=== PATIENT | female | born 1940 | race Caucasian/White ===

== ENCOUNTER 2016-10-24 13:14 | Outpatient (CLI) | payer MEDICARE | END 2016-10-24 13:15 | disposition home or self-care (01) | DX: M19.041 Primary osteoarthritis, right hand (principal); M19.042 Primary osteoarthritis, left hand ==

== ENCOUNTER 2017-07-13 08:20 | Outpatient (CLI) | payer MEDICARE ==
[2017-07-14 13:22] LABS: TEST RESULT REPORT
== END 2017-07-13 08:21 | disposition home or self-care (01) ==
LOC: LAB.WCP 08:20
PROVIDERS: ATTEND Family Medicine
DX: R19.7 Diarrhea, unspecified (principal); K29.60 Other gastritis without bleeding
CPT/HCPCS: 81599; 83630; 87045; 87046; 87329; 87338; 87493

== ENCOUNTER 2018-04-08 07:13 | Outpatient (CLI) | payer MEDICARE ==
[2018-04-08 12:54] LABS: BASOPHILS # (AUTO) 0.1 10^3/uL (0.0-0.1); BASOPHILS % (AUTO) 1.3 %; EOSINOPHILS # (AUTO) 0.2 10^3/uL (0.0-0.7); EOSINOPHILS % (AUTO) 4.2 %; HGB - HEMOGLOBIN 15.3 g/dL (12.0-16.0); LYMPHOCYTES # (AUTO) 1.5 10^3/uL (1.5-3.5); LYMPHOCYTES % (AUTO) 29.3 %; MEAN CORPUSCULAR HGB CONC 33.1 g/dL (32.0-36.0); MEAN CORPUSCULAR VOLUME 96.6 fL (81.0-99.0); MEAN PLATELET VOLUME 8.8 fL (7.9-10.8); MONOCYTES # (AUTO) 0.5 10^3/uL (0.0-1.0); MONOCYTES % (AUTO) 9.7 %; NEUTROPHILS # (AUTO) 2.9 10^3/uL (1.5-6.6); NEUTROPHILS % (AUTO) 55.5 %; PLT - PLATELET COUNT 181 10^3/uL (130-450); RED BLOOD COUNT 4.78 10^6/uL (4.20-5.40); RED CELL DISTRIBUTION WIDTH 13.4 % (12.0-15.0); WHITE BLOOD COUNT 5.3 x10^3/uL (4.8-10.8)
[2018-04-08 13:21] LABS: ALBUMIN/GLOBULIN RATIO 1.5 (1.0-2.2); ALKALINE PHOSPHATASE 70 IU/L (42-121); ALT ALANINE AMINOTRANSFERASE 15 IU/L (10-60); AST ASPARTATE AMINOTRANSFERASE 18 IU/L (10-42); BILIRUBIN,TOTAL 0.8 mg/dL (0.2-1.0); BUN - BLOOD UREA NITROGEN 10 mg/dL (6-20); CALCIUM 9.2 mg/dL (8.5-10.3); CARBON DIOXIDE - CO2 27 mmol/L (21-32); CHLORIDE 106 mmol/L (101-111); CHOL/HDL RATIO 3.2 (<4.4); CHOLESTEROL 212 mg/dL; CREATININE 0.9 mg/dL (0.4-1.0); GFR - MDRD 61 (>89); GLUCOSE 81 mg/dL (70-100); HDL CHOLESTEROL 66 mg/dL; LDL CHOLESTEROL,CALCULATED 126 mg/dL; LDL/HDL RATIO 1.9 (<4.4); SODIUM 140 mmol/L (135-145); TOTAL PROTEIN 6.6 g/dL (6.7-8.2); VLDL CHOLESTEROL 20 mg/dL
== END 2018-04-08 07:14 | disposition home or self-care (01) ==
LOC: LAB.WCP 07:13
PROVIDERS: ATTEND Physician Assistant Medical
DX: E78.5 Hyperlipidemia, unspecified (principal); I10 Essential (primary) hypertension
CPT/HCPCS: 36415; 80053; 80061; 83721; 85025

== ENCOUNTER 2018-04-30 18:05 | Outpatient (CLI) | payer MEDICARE | END 2018-04-30 18:06 | disposition short-term general hospital (02) | LOC: EMS 18:05 | PROVIDERS: ATTEND Surgery | DX: R94.39 Abnormal result of other cardiovascular function study (principal) | CPT/HCPCS: A0425; A0429 ==

== ENCOUNTER 2018-07-28 02:36 | Outpatient (CLI) | payer MEDICARE | END 2018-07-28 02:37 | disposition critical access hospital (66) | LOC: EMS 02:36 | PROVIDERS: ATTEND Surgery | DX: M25.512 Pain in left shoulder (principal) | CPT/HCPCS: A0425; A0429 ==

== ENCOUNTER 2018-07-28 02:45 | Emergency (ER) | payer MEDICARE ==
[2018-07-28] MEDS ORDERED: KETOROLAC 60 MG/2 ML VIAL IVP STA (02:54)
--- NOTE | 2018-07-28 02:58 | ED Physician Documentation ---
History of Present Illness - Stated complaint Stated Complaint: SHOULDER PAIN - Chief complaint Chief Complaint: Ext Problem - History obtained from History obtained from: Patient, EMS - History of Present Illness Timing: How many hours ago (7) Pain level max: 7 Pain level now: 5 Improved by: Rest Worsened by: Movement - Additonal information Additional information: Patient is a 78-year-old female who presents to the emergency department with left shoulder pain that started around 8:00 last night. Has been persistent since that time. She took 1 200 mg Motrin without relief. She did go work out today at [employer]. Denies any known injury. She states that she had 2 coronary stents in May of this year and is concerned about this potentially being related to her heart Review of Systems Constitutional: denies: Fever, Chills Cardiac: denies: Chest pain / pressure, Palpitations Respiratory: denies: Dyspnea, Cough, Wheezing GI: denies: Vomiting, Diarrhea Skin: denies: Rash Musculoskeletal: denies: Neck pain, Back pain Neurologic: denies: Headache PD PAST MEDICAL HISTORY - Past Medical History Past Medical History: Yes Cardiovascular: Hypertension, High cholesterol, Coronary artery disease GI: GERD - Past Surgical History Past Surgical History: Yes General: Appendectomy Ortho: Knee replacement, Carpal Tunnel surgery Cardiovascular: Coronary stent, Angioplasty HEENT: Cataracts - Present Medications Home Medications: Ambulatory Orders Medication Instructions Recorded Confirmed Losartan [Cozaar] 50 mg PO DAILY 01/14/15 07/28/18 - Allergies Allergies/Adverse Reactions: Allergies Allergy/AdvReac Type Severity Reaction Status Date / Time No Known Drug Allergies Allergy Verified 07/28/18 02:54 - Social History Does the pt smoke?: No Smoking Status: Never smoker Does the pt drink ETOH?: No Does the pt have substance abuse?: No - Immunizations Immunizations are current?: Yes - POLST Patient has POLST: No PD ED PE NORMAL - Vitals Vital signs reviewed: Yes - General General: Alert and oriented X 3, No acute distress - HEENT HEENT: Moist mucous membranes - Neck Neck: Supple, no meningeal sign - Cardiac Cardiac: RRR, Strong equal pulses - Respiratory Respiratory: No respiratory distress, Clear bilaterally - Abdomen Abdomen: Soft, Non tender, Non distended - Derm Derm: Warm and dry - Extremities Extremities: Other (L shoulder - TTP over the glenohumeral joint, anterior joint line. Pain increases with AROM. NVI including axillary nerve) - Neuro Neuro: Alert and oriented X 3 - Psych Psych: Normal mood, Normal affect Results - Vitals Vitals: Vital Signs - 24 hr 07/28/18 07/28/18 07/28/18 02:50 03:30 04:11 Temperature 36.7 C Heart Rate 60 65 98 Respiratory 18 16 16 Rate Blood Pressure 157/64 H 135/68 H 152/65 H O2 Saturation 96 94 97 Oxygen O2 Source Room air - EKG (time done) 0254 Rate: Rate (enter#) (64) Rhythm: NSR [place]: Normal Intervals: Normal VA QRS: Normal Ischemia: Normal ST segments - Labs Labs: Laboratory Tests 07/28/18 07/28/18 07/28/18 03:00 03:00 03:00 WBC 6.2 RBC 4.49 Hgb 14.6 Hct 41.0 MCV 91.3 MCH 32.5 H MCHC 35.6 RDW 13.5 Plt Count 161 MPV 7.5 L Neut # (Auto) 4.4 Lymph # (Auto) 0.9 L [place] # (Auto) 0.6 Eos # (Auto) 0.2 Baso # (Auto) 0.1 Absolute Nucleated RBC 0.00 Nucleated RBC % 0.0 Sodium 137 Potassium 3.7 Chloride 104 Carbon Dioxide 24 Anion Gap 9.0 BUN 13 Creatinine 0.7 Estimated GFR (MDRD) 81 L Glucose 97 Calcium 9.1 Total Bilirubin 0.9 AST 33 ALT 46 Alkaline Phosphatase 90 Troponin I < 0.04 Total Protein 6.4 L Albumin 4.2 Globulin 2.2 Albumin/Globulin Ratio 1.9 Lipase 37 - Rads (name of study) cxr Radiology: Prelim report reviewed, EMP read contemporaneously, See rad report (no acute abnormality) PD MEDICAL DECISION MAKING - ED course Complexity details: reviewed results, re-evaluated patient, considered differential, d/w patient ED course: Patient is a 78-year-old female who presents to the emergency department with left shoulder pain. Appears musculoskeletal. No acute findings on EKG or cardiac enzymes after greater than 6 hours of symptoms. Pain resolved with Toradol. We will continue supportive care and follow-up with her doctor. Patient counseled regarding signs and symptoms for which I believe and urgent re-evaluation would be necessary. Patient with good understanding of and agreement to plan and is comfortable going home at this time This document was made in part using voice recognition software. While efforts are made to proofread this document, sound alike and grammatical errors may occur. Departure - Departure Disposition: 01 Home, Self Care Clinical Impression: Left shoulder strain Qualifiers: Encounter type: initial encounter Qualified Code(s): S46.912A - Strain of unspecified muscle, fascia and tendon at shoulder and upper arm level, left arm, initial encounter Condition: Good Instructions: ED Tendinitis Rotator Cuff Follow-Up: Brian Benitez MD [Primary Care Provider] - Within 1 week Comments: You appear to have inflammation in your shoulder. This should improve over the next few days. Return if you worsen. You can use motrin or tylenol as needed for pain. Discharge Date/Time: 07/28/18 04:24
[2018-07-28 03:14] LABS: BASOPHILS # (AUTO) 0.1 10^3/uL (0.0-0.1); BASOPHILS % (AUTO) 1.2 %; EOSINOPHILS # (AUTO) 0.2 10^3/uL (0.0-0.7); EOSINOPHILS % (AUTO) 3.9 %; HGB - HEMOGLOBIN 14.6 g/dL (12.0-16.0); LYMPHOCYTES # (AUTO) 0.9 10^3/uL (1.5-3.5); LYMPHOCYTES % (AUTO) 15.2 %; MEAN CORPUSCULAR HEMOGLOBIN 32.5 pg (27.0-31.0); MEAN CORPUSCULAR HGB CONC 35.6 g/dL (32.0-36.0); MEAN CORPUSCULAR VOLUME 91.3 fL (81.0-99.0); MEAN PLATELET VOLUME 7.5 fL (7.9-10.8); MONOCYTES # (AUTO) 0.6 10^3/uL (0.0-1.0); MONOCYTES % (AUTO) 9.5 %; NEUTROPHILS # (AUTO) 4.4 10^3/uL (1.5-6.6); NEUTROPHILS % (AUTO) 70.2 %; PLT - PLATELET COUNT 161 10^3/uL (130-450); RED BLOOD COUNT 4.49 10^6/uL (4.20-5.40); RED CELL DISTRIBUTION WIDTH 13.5 % (12.0-15.0); WHITE BLOOD COUNT 6.2 x10^3/uL (4.8-10.8)
[2018-07-28 03:27] LABS: ALBUMIN 4.2 g/dL (3.2-5.5); ALBUMIN/GLOBULIN RATIO 1.9 (1.0-2.2); BILIRUBIN,TOTAL 0.9 mg/dL (0.2-1.0); CALCIUM 9.1 mg/dL (8.5-10.3); CREATININE 0.7 mg/dL (0.4-1.0); TOTAL PROTEIN 6.4 g/dL (6.7-8.2)
--- NOTE | 2018-07-28 03:38 | XRAY Report ---
Reason: Chest Pain Procedure Date: 07/28/2018 Accession Number: [id number] / [id number] Procedure: XR - Chest 1 View X-Ray CPT Code: 85303 FULL RESULT: EXAM: CHEST RADIOGRAPHY EXAM DATE: 07/28/2018 03:05 AM. CLINICAL HISTORY: Chest Pain. COMPARISON: XR CHEST PA AND LAT 06/30/2009 12:50 PM. TECHNIQUE: 1 view. FINDINGS: Lungs/Pleura: No focal opacities evident. No pleural effusion. No pneumothorax. Mediastinum: Within exam limitations, the cardiomediastinal contour is normal. Other: None. IMPRESSION: Normal single view chest. RADIA
[2018-07-28 04:13] VITALS: BP 152/65
== END 2018-07-28 04:24 | disposition home or self-care (01) ==
LOC: EDUNIT# → EDBD → ED 02:45
DX: S46.912A Strain of unspecified muscle, fascia and tendon at shoulder and upper arm level, left arm, initial encounter (principal); X58.XXXA Exposure to other specified factors, initial encounter; I10 Essential (primary) hypertension; E78.00 Pure hypercholesterolemia, unspecified; I25.10 Atherosclerotic heart disease of native coronary artery without angina pectoris; Z95.5 Presence of coronary angioplasty implant and graft; Z96.659 Presence of unspecified artificial knee joint
CPT/HCPCS: 36415; 71045; 80053; 83690; 84484; 85025; 93005; 96374; 99283

== ENCOUNTER 2018-08-07 07:46 | Outpatient (CLI) | payer MEDICARE ==
[2018-08-07 12:56] LABS: BASOPHILS # (AUTO) 0.1 10^3/uL (0.0-0.1); BASOPHILS % (AUTO) 1.3 %; EOSINOPHILS # (AUTO) 0.2 10^3/uL (0.0-0.7); EOSINOPHILS % (AUTO) 5.5 %; HGB - HEMOGLOBIN 15.3 g/dL (12.0-16.0); LYMPHOCYTES % (AUTO) 21.8 %; MEAN CORPUSCULAR HEMOGLOBIN 32.4 pg (27.0-31.0); MEAN CORPUSCULAR HGB CONC 35.2 g/dL (32.0-36.0); MEAN CORPUSCULAR VOLUME 92.1 fL (81.0-99.0); MEAN PLATELET VOLUME 8.6 fL (7.9-10.8); MONOCYTES # (AUTO) 0.5 10^3/uL (0.0-1.0); MONOCYTES % (AUTO) 10.7 %; NEUTROPHILS # (AUTO) 2.7 10^3/uL (1.5-6.6); NEUTROPHILS % (AUTO) 60.7 %; PLT - PLATELET COUNT 171 10^3/uL (130-450); RED BLOOD COUNT 4.71 10^6/uL (4.20-5.40); RED CELL DISTRIBUTION WIDTH 13.2 % (12.0-15.0); WHITE BLOOD COUNT 4.5 x10^3/uL (4.8-10.8)
[2018-08-07 13:30] LABS: ALBUMIN 4.4 g/dL (3.2-5.5); ALBUMIN/GLOBULIN RATIO 1.9 (1.0-2.2); ALKALINE PHOSPHATASE 87 IU/L (42-121); ALT ALANINE AMINOTRANSFERASE 27 IU/L (10-60); AST ASPARTATE AMINOTRANSFERASE 23 IU/L (10-42); BUN - BLOOD UREA NITROGEN 17 mg/dL (6-20); CALCIUM 9.5 mg/dL (8.5-10.3); CARBON DIOXIDE - CO2 28 mmol/L (21-32); CHLORIDE 105 mmol/L (101-111); CHOL/HDL RATIO 2.6 (<4.4); CHOLESTEROL 142 mg/dL; CREATININE 0.9 mg/dL (0.4-1.0); GFR - MDRD 60 (>89); GLUCOSE 91 mg/dL (70-100); HDL CHOLESTEROL 55 mg/dL; LDL CHOLESTEROL,CALCULATED 72 mg/dL; LDL/HDL RATIO 1.3 (<4.4); SODIUM 140 mmol/L (135-145); TOTAL PROTEIN 6.7 g/dL (6.7-8.2); VLDL CHOLESTEROL 15 mg/dL
== END 2018-08-07 07:47 | disposition home or self-care (01) ==
LOC: LAB.WCP 07:46
PROVIDERS: ATTEND Family Medicine
DX: I25.10 Atherosclerotic heart disease of native coronary artery without angina pectoris (principal)
CPT/HCPCS: 36415; 80053; 80061; 83721; 85025

== ENCOUNTER 2018-11-22 08:00 | Outpatient (CLI) | payer MEDICARE | END 2018-11-22 08:01 | disposition home or self-care (01) | LOC: LAB.WCP 08:00 | PROVIDERS: ATTEND Family Medicine | DX: R19.7 Diarrhea, unspecified (principal) | CPT/HCPCS: 36415; 83630; 87045; 87046; 87493 ==

== ENCOUNTER 2018-11-23 08:10 | Outpatient (CLI) | payer MEDICARE | END 2018-11-23 23:59 | disposition home or self-care (01) | LOC: LAB.R 08:10 | PROVIDERS: ATTEND Family Medicine | DX: R19.7 Diarrhea, unspecified (principal) | CPT/HCPCS: 81599; 83630; 87045; 87046; 87329; 87493 ==

== ENCOUNTER 2019-06-26 14:05 | Outpatient (CLI) | payer MEDICARE ==
--- NOTE | 2019-06-27 09:40 | Mammography Report ---
Reason: ROUTINE MAMMO Procedure Date: 06/26/2019 Accession Number: [id number] / [id number] Procedure: CIPRIANO - Screening Mammo w/Bogdan CPT Code: FULL RESULT: EXAM: Screening Mammo w/Bogdan DATE: 06/26/2019 4:20 PM CLINICAL HISTORY: Screening encounter. History of benign left breast biopsy. TECHNIQUE: (B) - Bilateral CC and MLO views were obtained. COMPARISON: 09/17/2013 through 08/10/2010. PARENCHYMAL PATTERN: (A) - The breast(s) demonstrate(s) scattered fibroglandular densities. FINDINGS: There are typically benign large rodlike and typically benign vascular calcifications. There are no suspicious masses, calcifications, or areas of distortion. IMPRESSION: Benign findings. BI-RADS category 2. RECOMMENDATION: (ANNUAL) - Recommend routine annual screening mammography. BI-RADS CATEGORY: (2) - Benign Findings. STANDARD QUALIFYING STATEMENTS: 1. This examination was not reviewed with the aid of Computer-Aided Detection (CAD). 2. A negative or benign imaging report should not preclude biopsy if clinically suspicious findings are present. 3. Dense breasts may obscure an underlying neoplasm. 4. This examination was reviewed with the aid of 3D breast imaging (tomosynthesis).
== END 2019-06-26 14:06 | disposition home or self-care (01) ==
LOC: DI 14:05
DX: Z12.31 Encounter for screening mammogram for malignant neoplasm of breast (principal)
CPT/HCPCS: 77063; 77067

== ENCOUNTER 2019-10-27 08:04 | Outpatient (CLI) | payer MEDICARE ==
[2019-10-27 12:08] LABS: BASOPHILS # (AUTO) 0.1 10^3/uL (0.0-0.1); BASOPHILS % (AUTO) 1.1 %; EOSINOPHILS # (AUTO) 0.2 10^3/uL (0.0-0.7); EOSINOPHILS % (AUTO) 3.7 %; HGB - HEMOGLOBIN 15.6 g/dL (12.0-16.0); LYMPHOCYTES # (AUTO) 1.6 10^3/uL (1.5-3.5); LYMPHOCYTES % (AUTO) 27.5 %; MEAN CORPUSCULAR HEMOGLOBIN 33.3 pg (27.0-31.0); MEAN CORPUSCULAR HGB CONC 33.8 g/dL (32.0-36.0); MEAN CORPUSCULAR VOLUME 98.5 fL (81.0-99.0); MEAN PLATELET VOLUME 10.6 fL (7.9-10.8); MONOCYTES # (AUTO) 0.6 10^3/uL (0.0-1.0); MONOCYTES % (AUTO) 10.7 %; NEUTROPHILS # (AUTO) 3.2 10^3/uL (1.5-6.6); NEUTROPHILS % (AUTO) 56.6 %; PLT - PLATELET COUNT 189 10^3/uL (130-450); RED BLOOD COUNT 4.69 10^6/uL (4.20-5.40); RED CELL DISTRIBUTION WIDTH 12.2 % (12.0-15.0); WHITE BLOOD COUNT 5.7 x10^3/uL (4.8-10.8)
[2019-10-27 12:35] LABS: ALBUMIN 4.6 g/dL (3.2-5.5); ALBUMIN/GLOBULIN RATIO 2.1 (1.0-2.2); ALKALINE PHOSPHATASE 70 IU/L (42-121); ALT ALANINE AMINOTRANSFERASE 25 IU/L (10-60); AST ASPARTATE AMINOTRANSFERASE 21 IU/L (10-42); BILIRUBIN,TOTAL 0.9 mg/dL (0.2-1.0); BUN - BLOOD UREA NITROGEN 23 mg/dL (6-20); CALCIUM 9.6 mg/dL (8.5-10.3); CARBON DIOXIDE - CO2 27 mmol/L (21-32); CHLORIDE 103 mmol/L (101-111); CHOL/HDL RATIO 2.3 (<4.4); CHOLESTEROL 152 mg/dL; CREATININE 0.9 mg/dL (0.4-1.0); GFR - MDRD 60 (>89); GLUCOSE 94 mg/dL (70-100); HDL CHOLESTEROL 67 mg/dL; LDL CHOLESTEROL,CALCULATED 73 mg/dL; LDL/HDL RATIO 1.1 (<4.4); SODIUM 141 mmol/L (135-145); TOTAL PROTEIN 6.8 g/dL (6.7-8.2); VLDL CHOLESTEROL 12 mg/dL
== END 2019-10-27 23:59 | disposition home or self-care (01) ==
LOC: LAB.WCP 08:04
PROVIDERS: ATTEND Physician Assistant Medical
DX: Z00.00 Encounter for general adult medical examination without abnormal findings (principal); I25.10 Atherosclerotic heart disease of native coronary artery without angina pectoris; D64.9 Anemia, unspecified; H53.9 Unspecified visual disturbance; L20.9 Atopic dermatitis, unspecified; M17.0 Bilateral primary osteoarthritis of knee; I10 Essential (primary) hypertension; E78.5 Hyperlipidemia, unspecified; Z78.9 Other specified health status
CPT/HCPCS: 36415; 80053; 80061; 82306; 82728; 83721; 85025

== ENCOUNTER 2020-04-21 08:32 | Outpatient (CLI) | payer MEDICARE ==
[2020-04-21 12:06] LABS: ALBUMIN 4.2 g/dL (3.2-5.5); ALBUMIN/GLOBULIN RATIO 1.9 (1.0-2.2); BILIRUBIN,TOTAL 1.2 mg/dL (0.2-1.0); CALCIUM 9.6 mg/dL (8.5-10.3); CREATININE 0.9 mg/dL (0.4-1.0); TOTAL PROTEIN 6.4 g/dL (6.7-8.2)
== END 2020-04-21 23:59 | disposition home or self-care (01) ==
LOC: LAB.WCP 08:32
PROVIDERS: ATTEND Family Medicine
DX: I25.10 Atherosclerotic heart disease of native coronary artery without angina pectoris (principal); I10 Essential (primary) hypertension; E78.5 Hyperlipidemia, unspecified
CPT/HCPCS: 36415; 80053

== ENCOUNTER 2020-11-02 11:45 | Outpatient (CLI) | payer MEDICARE ==
[2020-11-02 19:03] LABS: ALBUMIN 4.4 g/dL (3.2-5.5); ALBUMIN/GLOBULIN RATIO 2.3 (1.0-2.2); ALKALINE PHOSPHATASE 77 IU/L (42-121); ALT ALANINE AMINOTRANSFERASE 26 IU/L (10-60); AST ASPARTATE AMINOTRANSFERASE 20 IU/L (10-42); BILIRUBIN,TOTAL 0.7 mg/dL (0.2-1.0); BUN - BLOOD UREA NITROGEN 18 mg/dL (6-20); CALCIUM 9.9 mg/dL (8.5-10.3); CARBON DIOXIDE - CO2 26 mmol/L (21-32); CHLORIDE 104 mmol/L (101-111); CHOLESTEROL 142 mg/dL; CREATININE 0.8 mg/dL (0.4-1.0); GLUCOSE 91 mg/dL (70-100); HDL CHOLESTEROL 70 mg/dL; LDL CHOLESTEROL,CALCULATED 44 mg/dL; LDL/HDL RATIO 0.6 (<4.4); TOTAL PROTEIN 6.3 g/dL (6.7-8.2); VLDL CHOLESTEROL 28 mg/dL
[2020-11-02 19:12] LABS: BASOPHILS # (AUTO) 0.1 10^3/uL (0.0-0.1); BASOPHILS % (AUTO) 0.7 %; EOSINOPHILS # (AUTO) 0.1 10^3/uL (0.0-0.7); EOSINOPHILS % (AUTO) 1.9 %; HGB - HEMOGLOBIN 14.5 g/dL (12.0-16.0); LYMPHOCYTES # (AUTO) 1.5 10^3/uL (1.5-3.5); LYMPHOCYTES % (AUTO) 20.5 %; MEAN CORPUSCULAR HEMOGLOBIN 32.8 pg (27.0-31.0); MEAN CORPUSCULAR HGB CONC 32.9 g/dL (32.0-36.0); MEAN CORPUSCULAR VOLUME 99.8 fL (81.0-99.0); MONOCYTES # (AUTO) 0.7 10^3/uL (0.0-1.0); MONOCYTES % (AUTO) 8.9 %; NEUTROPHILS % (AUTO) 67.7 %; PLT - PLATELET COUNT 184 10^3/uL (130-450); RED BLOOD COUNT 4.42 10^6/uL (4.20-5.40); RED CELL DISTRIBUTION WIDTH 12.4 % (12.0-15.0); WHITE BLOOD COUNT 7.3 x10^3/uL (4.8-10.8)
== END 2020-11-02 23:59 | disposition home or self-care (01) ==
LOC: LAB.WCP 11:45
PROVIDERS: ATTEND Family Medicine
DX: I25.10 Atherosclerotic heart disease of native coronary artery without angina pectoris (principal); I10 Essential (primary) hypertension; E78.5 Hyperlipidemia, unspecified
CPT/HCPCS: 36415; 80053; 80061; 83721; 84443; 85025

== ENCOUNTER 2020-12-03 08:23 | Outpatient (CLI) | payer MEDICARE ==
--- NOTE | 2020-12-03 09:27 | DEXA Report ---
PROCEDURE: Dexa Spine and/or Hip INDICATIONS: POST MENOPAUSAL TECHNIQUE: Dual energy x-ray absorptiometry (DXA) was performed on a [employer] System. Regions measur ed are the AP Spine, femoral neck, and if needed forearm. COMPARISON: None. FINDINGS: Lumbar Spine: Bone Mineral Density 1.200 g/cm/cm,T score 0.2, Left Femoral Neck: Bone Mineral Density 0.964 g/cm/cm, T score -0.3, (T score greater or equal to -1.0: NORMAL) (T score from -1.1 to -2.4: OSTEOPENIA) (T score less than or equal to -2.5 to: OSTEOPOROSIS) Impression: Normal. Patients with diagnosis of osteoporosis or osteopenia should have regular bone mineral density assess ment. For those eligible for Medicare, routine testing is allowed once every 2 years. Testing frequ ency can be increased for patients who have rapidly progressing disease or for those who are receivin g medical therapy to restore bone mass. Reviewed by: Thang Salamanca MD on 12/03/2020 9:25 AM PST Approved by: Thang Salamanca MD on 12/03/2020 9:25 AM PST Station ID: [id number]
== END 2020-12-03 08:24 | disposition home or self-care (01) ==
LOC: DI 08:23
PROVIDERS: ATTEND Physician Assistant Medical
DX: Z78.0 Asymptomatic menopausal state (principal)

== ENCOUNTER 2021-01-05 13:31 | Outpatient (CLI) | payer MEDICARE ==
--- NOTE | 2021-01-06 12:53 | Mammography Report ---
BILATERAL DIGITAL SCREENING MAMMOGRAM 3D/2D: 01/05/2021 CLINICAL: Routine screening. Comparison is made to exams dated: 06/26/2019 mammogram, 09/17/2013 mammogram, 09/13/2011 mammogram, and 08/10/2010 mammogram - [facility]. There are scattered fibroglandular elements in both breasts. There are benign calcifications in both breasts. No significant masses, calcifications, or other findings are seen in either breast. There has been no significant interval change. IMPRESSION: BENIGN There is no mammographic evidence of malignancy. A 1 year screening mammogram is recommended. This exam was interpreted at Station ID: [id number]. NOTE: For mammograms, a report in lay terms will be sent to the patient. Approximately 15% of breast malignancies will not be visualized mammographically. In the management of a palpable breast mass, a negative mammogram must not discourage biopsy of a clinically suspicious lesion. Electronically Signed By: Elias Pineda M.D. ddp/penrad:01/05/2021 14:10:21 ACR BI-RADS Category 2: Benign Finding(s) 3342F PARENCHYMAL PATTERN: (A) - The breast(s) demonstrate(s) scattered fibroglandular densities. BI-RADS CATEGORY: (2) - 2 RECOMMENDATION: (ANNUAL) - Recommend routine annual screening mammography. [id number] 1 year screening LATERALITY: (B)
== END 2021-01-05 13:32 | disposition home or self-care (01) ==
LOC: DI 13:31
DX: Z12.31 Encounter for screening mammogram for malignant neoplasm of breast (principal)

== ENCOUNTER 2021-08-02 19:38 | Inpatient (IN) | payer MEDICARE ==
--- NOTE | 2021-08-02 20:52 | ED Physician Documentation ---
PD HPI Fall - Stated complaint Stated Complaint: GLF OFF CURB - Chief complaint Chief Complaint: Ext Problem - History obtained from History obtained from: Patient - History of Present Illness Mechanism of injury: Slipped Fall distance: Standing position Where injury occurred: Street Timing - onset: Enter time (13:00), Today Injury(ies) location: Left Lower Extremity Pain level now: 5 Quality of pain: Pain Associated symptoms: No: LOC Symptoms improve with: Rest Worsens with: Movement, Palpation Contributing factors: No: Anticoagulated Recently seen: Not recently seen - Additional information Additional information: at approximately 1 PM today, patient was stepping down off of a curb when she misstepped, causing her to fall onto her left buttock, c/o sudden onset left hip and left bony pelvis pain, worse with weight-bearing (although she is able to ambulate and weight-bear) . no head injury, does not take anticoagulants Review of Systems Musculoskeletal: reports: Joint pain, Pain with weight bearing Neurologic: denies: Focal weakness, Numbness, Headache, Head injury, LOC PD PAST MEDICAL HISTORY - Past Medical History Past Medical History: Yes Cardiovascular: Hypertension, High cholesterol, Coronary artery disease GI: GERD - Past Surgical History Past Surgical History: Yes General: Appendectomy Ortho: Knee replacement, Carpal Tunnel surgery Cardiovascular: Coronary stent, Angioplasty HEENT: Cataracts - Present Medications Home Medications: Ambulatory Orders Medication Instructions Recorded Confirmed Losartan [Cozaar] 100 mg PO DAILY 01/14/15 08/02/21 Aspirin Chewable [[place] 81 mg PO DAILY 08/02/21 08/02/21 Aspirin] Atorvastatin Calcium [Lipitor] 80 mg PO DAILY 08/02/21 08/02/21 Melatonin/Pyridoxine [Melatonin 5 1 tablet PO DAILY 08/02/21 08/02/21 mg Tablet] Metoprolol Succinate [Toprol Xl] 25 mg PO DAILY 08/02/21 08/02/21 amLODIPine [Norvasc] 2.5 mg PO DAILY 08/02/21 08/02/21 - Allergies Allergies/Adverse Reactions: Allergies Allergy/AdvReac Type Severity Reaction Status Date / Time No Known Drug Allergies Allergy Verified 08/02/21 19:59 - Social History Does the pt smoke?: No Smoking Status: Never smoker Does the pt drink ETOH?: No Does the pt have substance abuse?: No - Immunizations Immunizations are current?: Yes - POLST Patient has POLST: No PD ED PE NORMAL - Vitals Vital signs reviewed: Yes - General General: Alert and oriented X 3, No acute distress, Well developed/nourished - HEENT HEENT: Atraumatic, PERRL, EOMI - Neck Neck: No bony TTP - Cardiac Cardiac: RRR, No murmur - Respiratory Respiratory: No respiratory distress, Clear bilaterally - Abdomen Abdomen: Soft, Non tender - Back Back: No spinal TTP - Derm Derm: Normal color, Warm and dry PD ED PE EXPANDED - Extremities Extremities: Other (no left hip TTP. movement involving LLE (such as flexion at hip) reproduces the pain) Results - Vitals Vitals: Vital Signs - 24 hr 08/02/21 08/02/21 19:56 20:04 Temperature 36.3 C L 36.3 C L Heart Rate 80 80 Respiratory 16 16 Rate Blood Pressure 148/62 H 148/62 H O2 Saturation 93 93 Oxygen O2 Source Room air - Labs Labs: Laboratory Tests 08/02/21 08/02/21 08/02/21 10:16 22:12 22:12 WBC 9.7 RBC 4.37 Hgb 14.4 Hct 42.4 MCV 97.0 MCH 33.0 H MCHC 34.0 RDW 12.3 Plt Count 152 MPV 9.9 Neut # (Auto) 7.7 H Lymph # (Auto) 1.0 L [place] # (Auto) 0.8 Eos # (Auto) 0.1 Baso # (Auto) 0.0 Absolute Nucleated RBC 0.00 Nucleated RBC % 0.0 Sodium 140 Potassium 3.5 Chloride 105 Carbon Dioxide 26 Anion Gap 9.0 BUN 22 H Creatinine 0.8 Estimated GFR (MDRD) 69 L Glucose 99 Calcium 10.2 Nasal Adenovirus (PCR) NOT DETECTED Nasal B. parapertussis DNA (PCR) NOT DETECTED Nasal Coronavir 229E PCR NOT DETECTED Nasal Coronavir HKU1 PCR NOT DETECTED Nasal Coronavir NL63 PCR NOT DETECTED Nasal Coronavir OC43 PCR NOT DETECTED Nasal Enterovir/Rhinovir PCR NOT DETECTED Nasal Influenza B PCR NOT DETECTED Nasal Influenza A PCR NOT DETECTED Nasal Parainfluen 1 PCR NOT DETECTED Nasal Parainfluen 2 PCR NOT DETECTED Nasal Parainfluen 3 PCR NOT DETECTED Nasal Parainfluen 4 PCR NOT DETECTED Nasal RSV (PCR) NOT DETECTED Nasal B.pertussis DNA PCR NOT DETECTED Nasal C.pneumoniae (PCR) NOT DETECTED Franki Human Metapneumo PCR NOT DETECTED Nasal M.pneumoniae (PCR) NOT DETECTED Nasal SARS-CoV-2 (PCR) NOT DETECTED - Rads (name of study) left hip w/pelvis xrays Radiology: Prelim report reviewed, See rad report PD MEDICAL DECISION MAKING - ED course Complexity details: reviewed results, re-evaluated patient, considered differential, d/w patient ED course: xrays demonstrate left hip subcapital femoral neck fracture. I discussed this unexpected result with the patient and explained that she would likely need surgical repair as inpatient. I also discussed this with her [id number] (at patient's request). D/W Dr. Eastman, who recommends admit to [facility] hospitalist service. D/W Dr. Lund, accepts to hospitalist service Departure - Departure Disposition: 66 [facility] DC/Xfer Clinical Impression: Hip fracture, left Qualifiers: Encounter type: initial encounter Fracture type: closed Qualified Code(s): S72.002A - Fracture of unspecified part of neck of left femur, initial encounter for closed fracture Condition: Good Discharge Date/Time: 08/02/21 23:10
--- NOTE | 2021-08-02 21:38 | XRAY Report ---
PROCEDURE: Hip w/Pelvis 2-3V LT INDICATIONS: fall, left hip/bony pelvis pain TECHNIQUE: AP pelvis with lateral view(s) of the left hip(s). COMPARISON: None. FINDINGS: Bones: Minimally displaced, minimally impacted subcapital left femoral neck fracture. Mild symmetric degenerative changes in both femoral acetabular joints. Pelvic ring appears intact. No suspicious [place] lesions. Soft tissues: The visualized bowel gas pattern is normal. No suspicious soft tissue calcifications. IMPRESSION: 1. Left subcapital femoral neck fracture. Reviewed by: Amanda Jones MD on 08/02/2021 9:37 PM PDT Approved by: Amanda Jones MD on 08/02/2021 9:37 PM PDT Station ID: [id number]
[2021-08-02] MEDS ORDERED: HYDROmorphone 0.5 MG/0.5 ML SYRINGE IVP PRN (22:19)
[2021-08-02] MEDS ORDERED: SODIUM CHLORIDE FLUSH 0.9% 10 ML SYRINGE IVP PRN (22:19)
[2021-08-02] MEDS ORDERED: ONDANSETRON 4 MG/2 ML VIAL IVP PRN (22:19)
[2021-08-02 22:20] LABS: BASOPHILS % (AUTO) 0.2 %; EOSINOPHILS # (AUTO) 0.1 10^3/uL (0.0-0.7); EOSINOPHILS % (AUTO) 0.9 %; HCT - HEMATOCRIT 42.4 % (37.0-47.0); HGB - HEMOGLOBIN 14.4 g/dL (12.0-16.0); LYMPHOCYTES % (AUTO) 10.6 %; MEAN PLATELET VOLUME 9.9 fL (7.9-10.8); MONOCYTES # (AUTO) 0.8 10^3/uL (0.0-1.0); MONOCYTES % (AUTO) 8.7 %; NEUTROPHILS # (AUTO) 7.7 10^3/uL (1.5-6.6); NEUTROPHILS % (AUTO) 79.4 %; PLT - PLATELET COUNT 152 10^3/uL (130-450); RED BLOOD COUNT 4.37 10^6/uL (4.20-5.40); RED CELL DISTRIBUTION WIDTH 12.3 % (12.0-15.0); WHITE BLOOD COUNT 9.7 x10^3/uL (4.8-10.8)
--- NOTE | 2021-08-02 22:28 | HISTORY & PHYSICAL EXAMINATION ---
Chief Complaint - Chief Complaint Chief Complaint: left hip pain History of Present Illness - Admitted From Admitted From:: [facility] ED - History Obtained From Records Reviewed: yes History obtained from: patient - History of Present Illness HPI Comment/Other: Patient is an 81-year-old female with medical history significant for coronary disease status post two stents in 2018, hyperlipidemia and hypertension who presented to the ED with complaint of left hip pain. She was leaving a restaurant around 1 PM when she had a misstep while stepping off of her curb and fell on her bottom. She did not hit her head or blackout. She was able to stand up with help from passerby and was able to bear weight on her legs. She drove home and for period of time was able to get around the house. However, her pain got significantly worse around 5 PM. She was advised to come to the ED by a family member. In the ED work-up included an xray of the hip and pelvis which showed a left subcapital femoral neck fracture. Dr Eastman with orthopedic surgery was contacted and is agreeable to see the patient in consult. History - Past Medical History Cardiovascular: reports: Hypertension, High cholesterol, Coronary artery disease GI: reports: GERD MRSA Hx?: No - Past Surgical History General: reports: Appendectomy Ortho: reports: Knee replacement, Carpal Tunnel surgery Cardiovascular: reports: Coronary stent, Angioplasty HEENT: reports: Cataracts - Family & Social History Family History Comment/Other: Patient's daughter has end-stage renal disease and is on hemodialysis. Patient's father had arthritis. Patient's mother had heart disease. She smoked tobacco. Living arrangement: At home Living Situation: Alone Social History Notes: The patient lives alone but has a friend who lives close by. She does not consume tobacco products. She rarely drinks alcohol. She does not use recreational substances. - POLST Patient has POLST: No POLST Status: Full Code Meds/Allgy - Home Medications Home Medications: Ambulatory Orders Medication Instructions Recorded Confirmed Losartan [Cozaar] 100 mg PO DAILY 01/14/15 08/02/21 Aspirin Chewable [[place] 81 mg PO DAILY 08/02/21 08/02/21 Aspirin] Atorvastatin Calcium [Lipitor] 80 mg PO DAILY 08/02/21 08/02/21 Melatonin/Pyridoxine [Melatonin 5 1 tablet PO DAILY 08/02/21 08/02/21 mg Tablet] Metoprolol Succinate [Toprol Xl] 25 mg PO DAILY 08/02/21 08/02/21 amLODIPine [Norvasc] 2.5 mg PO DAILY 08/02/21 08/02/21 - Allergies Allergies/Adverse Reactions: Allergies Allergy/AdvReac Type Severity Reaction Status Date / Time No Known Drug Allergies Allergy Verified 08/02/21 19:59 Review of Systems - Constitutional Constitutional: denies: Fatigue, Fever, Chills - Eyes Eyes: denies: Pain, Vision loss - Ears, Nose & Throat Ears, Nose & Throat: reports: Hearing loss - Cardiovascular Cariovascular: denies: Irregular heart rate, Chest pain, Edema, Lightheadedness, Syncope - Respiratory Respiratory: denies: Cough, Wheezing, SOB at rest, SOB with exertion - Gastrointestinal Gastrointestinal: reports: Diarrhea. denies: Abdominal pain, Abdominal distention, Nausea, Vomiting, Coffee grounds emesis, Reflux/heartburn - Genitourinary Genitourinary: denies: Dysuria, Frequency, Urgency, Hematuria, Incontinence, Flank pain - Musculoskeletal Musculoskeletal: reports: Joint pain (left hip). denies: Muscle pain, Back pain - Integumentary Integumentary: denies: Rash, Pruritis, Lesions - Neurological Neurological: denies: General weakness, Focal weakness, Headache, Dizziness - Psychiatric Psychiatric: denies: Depression, Anxiety - Endocrine Endocrine: denies: Polyuria, Polydypsia - Hematologic/Lymphatic Hematologic/Lymphatic: denies: Anemia, Bruising Prior Level of Functionality: Patient lives alone and is very independent of activities of daily living. Exam - Vital Signs Vital Signs: Vital Signs x48h Temp Pulse Resp BP Pulse Ox 08/02/21 20:04 36.3 C L 80 16 148/62 H 93 08/02/21 19:56 36.3 C L 80 16 148/62 H 93 - Physical Exam General Appearance: positive: Alert, Mild distress Eyes Bilateral: positive: PERRL, EOMI ENT: positive: No signs of dehydration Neck: positive: No JVD, Trachea midline Respiratory: positive: Chest non-tender, No respiratory distress, Breath sounds nml. negative: Wheezes, Rales, Rhonchi Cardiovascular: positive: Regular rate & rhythm, No murmur Abdomen: positive: Non-tender, No organomegaly, Nml bowel sounds, No distention. negative: Guarding, Rebound Back: positive: Nml inspection Skin: positive: Color nml, No rash, Warm, Dry Extremities: positive: Non-tender, Full ROM Neurologic/Psychiatric: positive: Oriented x3, Mood/affect nml Conclusion/Plan - Problem List (1) Hip fracture, left Conclusion/Plan: Due to her mechanical fall. X-ray of the hip/pelvis showed a left subcapital femoral neck fracture. Dr. Eastman contacted by the ED and is agreeable to see the patient in consult. Official consult placed. Patient made n.p.o. in anticipation of surgery. Pain management as needed. Qualifiers: Encounter type: initial encounter Fracture type: closed Qualified Code(s): S72.002A - Fracture of unspecified part of neck of left femur, initial encounter for closed fracture (2) Pre-op evaluation Conclusion/Plan: Patient is independent of activities of daily living. EKG showed normal sinus rhythm. According to the NSQIP surgical risk calculator, patient has a 2.3% and a 2.5% risk of serious complication and any complication respectively. This is below the average risk of serious complication which is at 3.4% and any complication which is 3.9% respectively. Predicted length of hospital stay is 1.5 days. She is currently medically optimized for surgery (3) CAD (coronary artery disease) Conclusion/Plan: s/p [employer] with 2 stents in 2018 Resume patient's Metoprolol succinate 25 mg p.o. daily, losartan 100 mg p.o. daily, Atorvastatin 80mg po daily and baby aspirin daily once verified. (4) Hypertension Conclusion/Plan: On metoprolol, amlodipine and losartan (5) Hyperlipidemia Conclusion/Plan: On atorvastatin 80mg po daily - Lab Results Fish Bones: 08/02/21 22:12 08/02/21 22:12 Core Measures - Anticipated LOS I expect patient to be DC'd or transferred within 96 hours.: Yes - DVT/VTE - Prophylaxis VTE/DVT Device ordered at admit?: Yes VTE/DVT Prophylaxis med ordered at admit?: Yes
[2021-08-02 22:30] LABS: CALCIUM 10.2 mg/dL (8.5-10.3); CREATININE 0.8 mg/dL (0.4-1.0); POTASSIUM 3.5 mmol/L (3.5-5.0)
[2021-08-02] MEDS: SODIUM CHLORIDE 0.9% 1,000 ML IV SCH (23:39)
[2021-08-02] MEDS: SODIUM CHLORIDE FLUSH 0.9% 10 ML SYRINGE IVP SCH (23:42)
[2021-08-03 00:27] LABS: B. PARAPERTUSSIS- RESP PCR PAN NOT DETECTED; B. PERTUSSIS- RESP PCR PANEL NOT DETECTED; C. PNEUMONIAE- RESP PCR PANEL NOT DETECTED; CORONAVIRUS 229E-RESP PCR NOT DETECTED; CORONAVIRUS HKU1-RESP PCR NOT DETECTED; CORONAVIRUS NL63-RESP PCR NOT DETECTED; CORONAVIRUS OC43-RESP PCR NOT DETECTED; HUMAN METAPNEUMOVIRUS NOT DETECTED; INFLUENZA A- RESP PCR PANEL NOT DETECTED; INFLUENZA B - RESP PCR PANEL NOT DETECTED; M. PNEUMONIAE- RESP PCR PANEL NOT DETECTED; PARAINFLUENZA VIRUS 1 NOT DETECTED; PARAINFLUENZA VIRUS 2 NOT DETECTED; PARAINFLUENZA VIRUS 3 NOT DETECTED; PARAINFLUENZA VIRUS 4 NOT DETECTED; RHINOVIRUS/ENTEROVIRUS NOT DETECTED; RSV- RESP PCR PANEL NOT DETECTED; SARS-CoV-2 -RESP PCR PANEL NOT DETECTED
[2021-08-03] MEDS: HYDROcod/ACETAM 5/325 MG TABLET PO PRN ×3 (00:46→21:10)
[2021-08-03] MEDS: DIPHENOX/ATROPINE 2.5/0.025 MG TABLET PO PRN (00:46)
[2021-08-03 04:58] LABS: BASOPHILS % (AUTO) 0.3 %; EOSINOPHILS # (AUTO) 0.1 10^3/uL (0.0-0.7); EOSINOPHILS % (AUTO) 2.4 %; HCT - HEMATOCRIT 39.1 % (37.0-47.0); HGB - HEMOGLOBIN 13.2 g/dL (12.0-16.0); LYMPHOCYTES # (AUTO) 0.9 10^3/uL (1.5-3.5); MEAN CORPUSCULAR HEMOGLOBIN 32.8 pg (27.0-31.0); MEAN CORPUSCULAR HGB CONC 33.8 g/dL (32.0-36.0); MEAN CORPUSCULAR VOLUME 97.3 fL (81.0-99.0); MONOCYTES # (AUTO) 0.5 10^3/uL (0.0-1.0); MONOCYTES % (AUTO) 8.9 %; NEUTROPHILS # (AUTO) 4.2 10^3/uL (1.5-6.6); NEUTROPHILS % (AUTO) 73.1 %; PLT - PLATELET COUNT 144 10^3/uL (130-450); RED BLOOD COUNT 4.02 10^6/uL (4.20-5.40); RED CELL DISTRIBUTION WIDTH 12.2 % (12.0-15.0); WHITE BLOOD COUNT 5.7 x10^3/uL (4.8-10.8)
[2021-08-03 05:03] LABS: CALCIUM 9.2 mg/dL (8.5-10.3); CREATININE 0.7 mg/dL (0.4-1.0); POTASSIUM 3.5 mmol/L (3.5-5.0)
[2021-08-03] MEDS: ACETAMINOPHEN 325 MG TABLET PO PRN (06:09)
[2021-08-03 09:54] LABS: INR 1.3 (0.8-1.2); PT - PROTHROMBIN TIME 14.8 secs (9.9-12.6)
[2021-08-03] MEDS: ASPIRIN CHEW 81 MG TABLET PO SCH (10:11)
[2021-08-03] MEDS: LOSARTAN 50 MG TABLET PO SCH (10:11)
[2021-08-03] MEDS: ATORVASTATIN 40 MG TABLET PO SCH (10:12)
[2021-08-03] MEDS: amLODIPine 5 MG TABLET PO SCH (10:13)
[2021-08-03] MEDS: METOPROLOL SUCCINATE 25 MG TABLET PO SCH (10:13)
--- NOTE | 2021-08-03 10:31 | HISTORY & PHYSICAL EXAMINATION ---
HPI - History Obtained From History obtained from: Patient - History of Present Illness HPI Comment/Other: This is a 81-year-old woman who fell and developed left hip pain after the fall.The fall occurred yesterday. She was coming out of a restaurant and walking to her car. She stepped off the curb and fell onto her buttocks and left hip. She was helped up onto her feet and was able to walk. The injury happened at about 1:00 in the afternoon and she developed increasing pain making very difficult to sit and bear weight at about 5:00. She came to the hospital emergency room, was evaluated and found to have a left hip fracture. She was admitted to the medical service and I was asked to perform orthopedic consultation. She does ambulate, no previous problems with left hip. She does have osteoarthritis of her knees and has had a previous right total knee arthroplasty and is quite symptomatic to the left knee. Her ability to ambulate is compromised because of her knees, mainly the left.She denies any other areas of pain other than left hip and upper thigh. She is comfortable in bed with the left hip flexed on a pillow. She denies syncope, dizziness, chest pain, shortness of breath or loss of consciousness associated with the fall. She does have a history of coronary artery disease in the past with hypertension but not symptomatic at the present time. PMH/PSH - Past Medical History Cardiovascular: positive: Hypertension, High cholesterol, Coronary artery disease Respiratory: positive: None Neuro: positive: None Endocrine/Autoimmune: positive: None GI: positive: GERD : positive: None Musculoskeletal: positive: None Derm: positive: None MRSA Hx?: No Other Past Medical History: 2 coronary stents, hypercosis.( High pitched hearing annoyances.) - Past Surgical History General: positive: Appendectomy Ortho: positive: Knee replacement, Carpal Tunnel surgery Cardiovascular: positive: Coronary stent, Angioplasty HEENT: positive: Cataracts Social & Family Hx - Social History Does the pt smoke?: No Smoking Status: Never smoker Does the pt drink ETOH?: No Does the pt have substance abuse?: No - POLST Patient has POLST: No POLST Status: Full Code Meds/Allgy - Home Medications Home Medications: Ambulatory Orders Medication Instructions Recorded Confirmed Losartan [Cozaar] 100 mg PO DAILY 01/14/15 08/02/21 Aspirin Chewable [[place] 81 mg PO DAILY 08/02/21 08/02/21 Aspirin] Atorvastatin Calcium [Lipitor] 80 mg PO DAILY 08/02/21 08/02/21 Melatonin/Pyridoxine [Melatonin 5 1 tablet PO DAILY 08/02/21 08/02/21 mg Tablet] Metoprolol Succinate [Toprol Xl] 25 mg PO DAILY 08/02/21 08/02/21 amLODIPine [Norvasc] 2.5 mg PO DAILY 08/02/21 08/02/21 - Allergies Allergies/Adverse Reactions: Allergies Allergy/AdvReac Type Severity Reaction Status Date / Time No Known Drug Allergies Allergy Verified 08/02/21 19:59 Exam - Vital Signs Vital Signs: Vital Signs x48h Temp Pulse Resp BP Pulse Ox 08/03/21 08:21 37 C 78 22 133/64 H 94 08/03/21 06:01 37.1 C 71 18 115/47 L 92 - Physical Exam General Appearance: positive: No acute distress Respiratory: positive: Chest non-tender Cardiovascular: positive: Regular rate & rhythm Peripheral Pulses: positive: 1+ Skin: positive: Color nml Neurologic/Psychiatric: positive: Oriented x3 Comments/Other: The left leg shows no clinical deformity but marked pain with movement passively. There is no sign of hematoma. The pelvis is nontender. Her lower back is nontender. The upper extremities do not show any sign of injury and she moves both upper extremities well as well as the right lower extremity. Her neurovascular is intact to left leg. Results - Lab Results Fish Bones: 08/03/21 04:37 08/03/21 04:37 Other Lab Results: Lab Results x24hrs 08/03/21 08/03/21 08/03/21 Range/Units 09:21 04:37 04:37 WBC 5.7 (4.8-10.8) x10^3/uL RBC 4.02 L (4.20-5.40) 10^6/uL Hgb 13.2 (12.0-16.0) g/dL Hct 39.1 (37.0-47.0) % MCV 97.3 (81.0-99.0) fL MCH 32.8 H (27.0-31.0) pg MCHC 33.8 (32.0-36.0) g/dL RDW 12.2 (12.0-15.0) % Plt Count 144 (130-450) 10^3/uL MPV 10.0 (7.9-10.8) fL Neut # (Auto) 4.2 (1.5-6.6) 10^3/uL Lymph # (Auto) 0.9 L (1.5-3.5) 10^3/uL Brewster # (Auto) 0.5 (0.0-1.0) 10^3/uL Eos # (Auto) 0.1 (0.0-0.7) 10^3/uL Baso # (Auto) 0.0 (0.0-0.1) 10^3/uL Absolute Nucleated RBC 0.00 x10^3/uL Nucleated RBC % 0.0 /100WBC PT 14.8 H (9.9-12.6) secs INR 1.3 H (0.8-1.2) Sodium 142 (135-145) mmol/L Potassium 3.5 (3.5-5.0) mmol/L Chloride 109 (101-111) mmol/L Carbon Dioxide 25 (21-32) mmol/L Anion Gap 8.0 (6-13) BUN 17 (6-20) mg/dL Creatinine 0.7 (0.4-1.0) mg/dL Estimated GFR (MDRD) 80 L (>89) Glucose 89 (70-100) mg/dL Calcium 9.2 (8.5-10.3) mg/dL Nasal Adenovirus (PCR) Nasal B. parapertussis DNA (PCR) Nasal Coronavir 229E PCR Nasal Coronavir HKU1 PCR Nasal Coronavir NL63 PCR Nasal Coronavir OC43 PCR Nasal Enterovir/Rhinovir PCR Nasal Influenza B PCR Nasal Influenza A PCR Nasal Parainfluen 1 PCR Nasal Parainfluen 2 PCR Nasal Parainfluen 3 PCR Nasal Parainfluen 4 PCR Nasal RSV (PCR) Nasal B.pertussis DNA PCR Nasal C.pneumoniae (PCR) Franki Human Metapneumo PCR Nasal M.pneumoniae (PCR) Nasal SARS-CoV-2 (PCR) 08/02/21 08/02/21 08/02/21 Range/Units 22:12 22:12 10:16 WBC 9.7 (4.8-10.8) x10^3/uL RBC 4.37 (4.20-5.40) 10^6/uL Hgb 14.4 (12.0-16.0) g/dL Hct 42.4 (37.0-47.0) % MCV 97.0 (81.0-99.0) fL MCH 33.0 H (27.0-31.0) pg MCHC 34.0 (32.0-36.0) g/dL RDW 12.3 (12.0-15.0) % Plt Count 152 (130-450) 10^3/uL MPV 9.9 (7.9-10.8) fL Neut # (Auto) 7.7 H (1.5-6.6) 10^3/uL Lymph # (Auto) 1.0 L (1.5-3.5) 10^3/uL Brewster # (Auto) 0.8 (0.0-1.0) 10^3/uL Eos # (Auto) 0.1 (0.0-0.7) 10^3/uL Baso # (Auto) 0.0 (0.0-0.1) 10^3/uL Absolute Nucleated RBC 0.00 x10^3/uL Nucleated RBC % 0.0 /100WBC PT (9.9-12.6) secs INR (0.8-1.2) Sodium 140 (135-145) mmol/L Potassium 3.5 (3.5-5.0) mmol/L Chloride 105 (101-111) mmol/L Carbon Dioxide 26 (21-32) mmol/L Anion Gap 9.0 (6-13) BUN 22 H (6-20) mg/dL Creatinine 0.8 (0.4-1.0) mg/dL Estimated GFR (MDRD) 69 L (>89) Glucose 99 (70-100) mg/dL Calcium 10.2 (8.5-10.3) mg/dL Nasal Adenovirus (PCR) NOT DETECTED Nasal B. parapertussis DNA (PCR) NOT DETECTED Nasal Coronavir 229E PCR NOT DETECTED Nasal Coronavir HKU1 PCR NOT DETECTED Nasal Coronavir NL63 PCR NOT DETECTED Nasal Coronavir OC43 PCR NOT DETECTED Nasal Enterovir/Rhinovir PCR NOT DETECTED Nasal Influenza B PCR NOT DETECTED Nasal Influenza A PCR NOT DETECTED Nasal Parainfluen 1 PCR NOT DETECTED Nasal Parainfluen 2 PCR NOT DETECTED Nasal Parainfluen 3 PCR NOT DETECTED Nasal Parainfluen 4 PCR NOT DETECTED Nasal RSV (PCR) NOT DETECTED Nasal B.pertussis DNA PCR NOT DETECTED Nasal C.pneumoniae (PCR) NOT DETECTED Franki Human Metapneumo PCR NOT DETECTED Nasal M.pneumoniae (PCR) NOT DETECTED Nasal SARS-CoV-2 (PCR) NOT DETECTED - Diagnostic Imaging Results Diagnostic Imaging Results: negative: Read independently (Mildly displaced impacted, valgus aligned femoral neck fracture left hip) Impression/Plan - Problem List Problem List: Mildly displaced femoral neck fracture left hip: The options of treatment are percutaneous screw fixation versus arthroplasty. Advantages and disadvantages were discussed, both are associated with potential problems but different. The main disadvantage of percutaneous screw fixation is in about 10 to 20% of the patients, a revision may be necessary. This would require a total hip arthroplasty at a later date if the percutaneous screw fixation was not successful and she developed problems with either screw fixation, failure to heal or avascular necrosis/nonunion. I discussed the risk, goals and likelihood achieving goals, alternatives to surgery and their consequences, disability and . The plan is to do a percutaneous cannulated screw fixation, possible hemiarthroplasty of her left hip today. She is in agreement to the surgery and has signed the informed consent. Her medical status appears stable and she was evaluated by our hospitalist.
--- NOTE | 2021-08-03 10:35 | PHARMACY PROGRESS NOTE ---
- Best Possible Medication History Admit Date and Time: 08/02/215 Processed by: Nursing Medication History completed: Yes As the person ultimately responsible for medication therapy, providers are able to order a medication from an existing home medication list in [facility] via the "Reconcile Routine" prior to Confirmation of that medication by client support associate. Such practice is discouraged except when the physician, in their clinical judgment, deems that a medical need exists for a medication without regard to previous use.
[2021-08-03] MEDS: SODIUM CHLORIDE 0.9% 1,000 ML IV SCH ×2 (11:15→19:00)
--- NOTE | 2021-08-03 13:55 | ANESTHESIA ---
Pre-Anesthesia VS, & Labs - Diagnosis Left hip fracture - Procedure left hip percutaneous pinning Vital Signs: Temp Pulse Resp BP Pulse Ox 37 C 78 22 133/64 H 94 08/03/21 08:21 08/03/21 08:21 08/03/21 08:21 08/03/21 08:21 08/03/21 08:21 Height: 5 ft Weight (kg): 54.5 kg Body Mass Index: 23.4 BMI Classification: Healthy weight - NPO >8 hours - Is Patient ?: No - Lab Results Current Lab Results: Laboratory Tests 08/03/21 09:21: PT 14.8 H, INR 1.3 H 08/03/21 04:37: Sodium 142, Potassium 3.5, Chloride 109, Carbon Dioxide 25, Anion Gap 8.0, BUN 17, Creatinine 0.7, Estimated GFR (MDRD) 80 L, Glucose 89, Calcium 9.2 08/03/21 04:37: WBC 5.7, RBC 4.02 L, Hgb 13.2, Hct 39.1, MCV 97.3, MCH 32.8 H, MCHC 33.8, RDW 12.2, Plt Count 144, MPV 10.0, Neut # (Auto) 4.2, Lymph # (Auto) 0.9 L, Cherry # (Auto) 0.5, Eos # (Auto) 0.1, Baso # (Auto) 0.0, Absolute Nucleated RBC 0.00, Nucleated RBC % 0.0 08/02/21 22:12: Sodium 140, Potassium 3.5, Chloride 105, Carbon Dioxide 26, Anion Gap 9.0, BUN 22 H, Creatinine 0.8, Estimated GFR (MDRD) 69 L, Glucose 99, Calcium 10.2 08/02/21 22:12: WBC 9.7, RBC 4.37, Hgb 14.4, Hct 42.4, MCV 97.0, MCH 33.0 H, MCHC 34.0, RDW 12.3, Plt Count 152, MPV 9.9, Neut # (Auto) 7.7 H, Lymph # (Auto) 1.0 L, Cherry # (Auto) 0.8, Eos # (Auto) 0.1, Baso # (Auto) 0.0, Absolute Nucleated RBC 0.00, Nucleated RBC % 0.0 Fish Bones: 08/03/21 04:37 08/03/21 04:37 Home Medications and Allergies Home Medications: Ambulatory Orders Aspirin Chewable [[place] Aspirin] 81 mg PO DAILY 08/02/21 Atorvastatin Calcium [Lipitor] 80 mg PO DAILY 08/02/21 Melatonin/Pyridoxine [Melatonin 5 mg Tablet] 1 tablet PO DAILY 08/02/21 Metoprolol Succinate [Toprol Xl] 25 mg PO DAILY 08/02/21 amLODIPine [Norvasc] 2.5 mg PO DAILY 08/02/21 Active Medications Acetaminophen (Acetaminophen 325 Mg Tablet) 650 mg PO Q4HR PRN PRN Reason: Pain 1 to 4 Last Admin: 08/03/21 06:09 Dose: 650 mg Documented by: Hydrocodone Bitart/Acetaminophen (Hydrocod/Acetam 5/325 Mg Tablet) 1 tab PO Q4HR PRN PRN Reason: Pain 5 to 7 Last Admin: 08/03/21 00:46 Dose: 1 tab Documented by: Amlodipine Besylate (Amlodipine 5 Mg Tablet) 2.5 mg PO DAILY [facility] Last Admin: 08/03/21 10:13 Dose: 2.5 mg Documented by: Aspirin (Aspirin Chew 81 Mg Tablet) 81 mg PO DAILY [facility] Last Admin: 08/03/21 10:11 Dose: 81 mg Documented by: Atorvastatin Calcium (Atorvastatin 40 Mg Tablet) 80 mg PO DAILY [facility] Last Admin: 08/03/21 10:12 Dose: 80 mg Documented by: Diphenoxylate HCl/Atropine (Diphenox/Atropine 2.5/0.025 Mg Tablet) 1 tab PO QID PRN PRN Reason: Diarrhea Last Admin: 08/03/21 00:46 Dose: 1 tab Documented by: Hydromorphone HCl (Hydromorphone 0.5 Mg/0.5 Ml Syringe) 0.5 mg IVP Q2H PRN PRN Reason: Pain 8 to 10 Sodium Chloride (Normal Saline 0.9%) 1,000 mls @ 100 mls/hr IV .Q10H [facility] Last Admin: 08/03/21 11:15 Dose: 100 mls/hr Documented by: Losartan Potassium (Losartan 50 Mg Tablet) 100 mg PO DAILY [facility] Last Admin: 08/03/21 10:11 Dose: 100 mg Documented by: Metoprolol Succinate (Metoprolol Succinate 25 Mg Tablet) 25 mg PO DAILY [facility] Last Admin: 08/03/21 10:13 Dose: 25 mg Documented by: Ondansetron HCl (Ondansetron 4 Mg/2 Ml Vial) 4 mg IVP Q6HR PRN PRN Reason: Nausea / Vomiting Sodium Chloride (Sodium Chloride Flush 0.9% 10 Ml Syringe) 10 ml IVP PRN PRN PRN Reason: NEEDED PER PROVIDER ORDERS Sodium Chloride (Sodium Chloride Flush 0.9% 10 Ml Syringe) 10 ml IVP 0100,0900,1700 [facility] Last Admin: 08/02/21 23:42 Dose: 10 ml Documented by: Losartan [Cozaar] 100 mg PO DAILY 01/14/15 Aspirin Chewable [[place] Aspirin] 81 mg PO DAILY 08/02/21 Atorvastatin Calcium [Lipitor] 80 mg PO DAILY 08/02/21 Melatonin/Pyridoxine [Melatonin 5 mg Tablet] 1 tablet PO DAILY 08/02/21 Metoprolol Succinate [Toprol Xl] 25 mg PO DAILY 08/02/21 amLODIPine [Norvasc] 2.5 mg PO DAILY 08/02/21 Allergies/Adverse Reactions: Allergies Allergy/AdvReac Type Severity Reaction Status Date / Time No Known Drug Allergies Allergy Verified 08/02/21 19:59 Anes History & Medical History - Anesthetic History Anesthesia Complications: reports: No previous complications - Medical History Cardiovascular: reports: Hypertension, High cholesterol, Coronary artery disease Pulmonary: reports: None Gastrointestinal: reports: GERD Urinary: reports: None Neuro: reports: None Musculoskeletal: reports: None Endocrine/Autoimmune: reports: None Blood Disorders: reports: None Skin: reports: None Smoking Status: Never smoker Psychosocial: reports: Anxiety History of Cancer?: No Other Past Medical History: 2 coronary stents, hypercosis.( High pitched hearing annoyances.) - Surgical History General: reports: Appendectomy Eyes Ears Nose Throat (EENT): reports: Cataracts Cardiothoracic: reports: Coronary stent, Angioplasty Orthopedic: reports: Knee replacement, Carpal Tunnel surgery Exam General: Alert, Oriented x3, Cooperative, No acute distress Dental: WNL Mouth Openin Fingerbreadth Neck Mobility: Normal Mallampati classification: II Thyromental Distance: 4-6 cm Mental/Cognitive Status: Alert/Oriented X3, Normal for patient Plan Anesthesia Type: Spinal, Fascia Iliaca Block (left) Regional Block: Per Surgeon's request for Post Op pain control Consent for Procedure(s) Verified and Reviewed: Yes Code Status: Attempt Resuscitation ASA classification: 3-Severe systemic disease Is this case an emergency?: No
--- NOTE | 2021-08-03 14:16 | PROVIDER PROGRESS NOTE ---
Assessment/Plan - Problem List (1) Hip fracture, left Qualifiers: Encounter type: initial encounter Fracture type: closed Qualified Code(s): S72.002A - Fracture of unspecified part of neck of left femur, initial encounter for closed fracture Assessment/Plan: 08/03 pt is on surgery for her hip repair. we will followup s/p care, resume cardiac diet, pain control, PT/OT followup, lovenox for DVT prophylaxis, incentive spirometer for s/p care, Consult with social work for disposition planning (2) Pre-op evaluation admission provider provided pre-op evaluation, pt is on surgery now. ordered ch adarsh PT/INR, will continue s/p care for pt (3) CAD (coronary artery disease) stable. pt was resumed her home meds Metoprolol succinate 25 mg p.o. daily, losartan 100 mg p.o. daily, Atorvastatin 80mg po daily and baby aspirin daily (4) Hypertension Conclusion/Plan: stable, continue On metoprolol, amlodipine and losartan (5) Hyperlipidemia continue On atorvastatin 80mg po daily - Current Meds Current Meds: Current Medications Generic Name Dose Route Start Last Admin Trade Name Freq PRN Reason Stop Dose Admin Acetaminophen 650 mg 08/02/21 22:19 08/03/21 06:09 Acetaminophen 325 Mg Tablet PO 650 mg Q4HR PRN Administration Pain 1 to 4 Hydrocodone Bitart/Acetaminophen 1 tab 08/02/21 22:19 08/03/21 00:46 Hydrocod/Acetam 5/325 Mg Tablet PO 1 tab Q4HR PRN Administration Pain 5 to 7 Amlodipine Besylate 2.5 mg 08/03/21 09:00 08/03/21 10:13 Amlodipine 5 Mg Tablet PO 2.5 mg DAILY MARY Administration Aspirin 81 mg 08/03/21 09:00 08/03/21 10:11 Aspirin Chew 81 Mg Tablet PO 81 mg DAILY MARY Administration Atorvastatin Calcium 80 mg 08/03/21 09:00 08/03/21 10:12 Atorvastatin 40 Mg Tablet PO 80 mg DAILY MARY Administration Diphenoxylate HCl/Atropine 1 tab 08/02/21 22:51 08/03/21 00:46 Diphenox/Atropine 2.5/0.025 Mg Tablet PO 1 tab QID PRN Administration Diarrhea Sodium Chloride 1,000 mls @ 100 mls/hr 08/02/21 23:00 08/03/21 11:15 Normal Saline 0.9% IV 100 mls/hr .Q10H MARY Administration Losartan Potassium 100 mg 08/03/21 09:00 08/03/21 10:11 Losartan 50 Mg Tablet PO 100 mg DAILY MARY Administration Metoprolol Succinate 25 mg 08/03/21 09:00 08/03/21 10:13 Metoprolol Succinate 25 Mg Tablet PO 25 mg DAILY MARY Administration Sodium Chloride 10 ml 08/03/21 01:00 08/02/21 23:42 Sodium Chloride Flush 0.9% 10 Ml Syringe IVP 10 ml 0100,0900,1700 MARY Administration - Lab Result Fish Bone Diagrams: 08/03/21 04:37 08/03/21 04:37 - Additional Planning My Orders: My Active Orders 08/03/21 08:30 NPO except Meds [DIET] Subjective - Subjective Patient Reports: Feeling Better, Resting Comfortably Objective Vital Signs: Vital Signs - 24 hr 08/02/21 08/02/21 08/02/21 19:56 20:04 22:34 Temperature 36.3 C L 36.3 C L 36.5 C Heart Rate 80 80 65 Heart Rate [ Brachial] Respiratory 16 16 17 Rate Blood Pressure 148/62 H 148/62 H 153/84 H Blood Pressure [Right Brachial artery] O2 Saturation 93 93 98 08/02/21 08/03/21 08/03/21 23:23 06:01 08:00 Temperature 37.1 C 37.1 C Heart Rate Heart Rate [ 65 71 74 Brachial] Respiratory 19 18 Rate Blood Pressure Blood Pressure 147/65 H 115/47 L 139/47 H [Right Brachial artery] O2 Saturation 96 92 97 08/03/21 08:21 Temperature 37 C Heart Rate Heart Rate [ 78 Brachial] Respiratory 22 Rate Blood Pressure Blood Pressure 133/64 H [Right Brachial artery] O2 Saturation 94 Oxygen O2 Source Room air I&O (Last 24 Hrs): Intake and Output Totals x24h 08/01/21 08/02/21 08/03/21 23:59 23:59 23:59 Intake Total 1000 Output Total 200 Balance 800 General: Alert, Oriented x3, Cooperative, No acute distress HEENT: Atraumatic Neck: Supple Lymphatic: no adenopathy Neuro: Alert, Non Focal, Oriented Times 3 Cardiovascular: Regular rate, Normal S1, Normal S2 Respiratory: Chest non-tender, No respiratory distress Abdomen: Normal bowel sounds, Soft Extremities: Normal pulses - Results Results: Laboratory Results WBC 5.7 x10^3/uL (4.8-10.8) 08/03/21 04:37 RBC 4.02 10^6/uL (4.20-5.40) L 08/03/21 04:37 Hgb 13.2 g/dL (12.0-16.0) 08/03/21 04:37 Hct 39.1 % (37.0-47.0) 08/03/21 04:37 MCV 97.3 fL (81.0-99.0) 08/03/21 04:37 MCH 32.8 pg (27.0-31.0) H 08/03/21 04:37 MCHC 33.8 g/dL (32.0-36.0) 08/03/21 04:37 RDW 12.2 % (12.0-15.0) 08/03/21 04:37 Plt Count 144 10^3/uL (130-450) 08/03/21 04:37 MPV 10.0 fL (7.9-10.8) 08/03/21 04:37 Neut # (Auto) 4.2 10^3/uL (1.5-6.6) 08/03/21 04:37 Lymph # (Auto) 0.9 10^3/uL (1.5-3.5) L 08/03/21 04:37 Dunn # (Auto) 0.5 10^3/uL (0.0-1.0) 08/03/21 04:37 Eos # (Auto) 0.1 10^3/uL (0.0-0.7) 08/03/21 04:37 Baso # (Auto) 0.0 10^3/uL (0.0-0.1) 08/03/21 04:37 Absolute Nucleated RBC 0.00 x10^3/uL 08/03/21 04:37 Nucleated RBC % 0.0 /100WBC 08/03/21 04:37 PT 14.8 secs (9.9-12.6) H 08/03/21 09:21 INR 1.3 (0.8-1.2) H 08/03/21 09:21 Sodium 142 mmol/L (135-145) 08/03/21 04:37 Potassium 3.5 mmol/L (3.5-5.0) 08/03/21 04:37 Chloride 109 mmol/L (101-111) 08/03/21 04:37 Carbon Dioxide 25 mmol/L (21-32) 08/03/21 04:37 Anion Gap 8.0 (6-13) 08/03/21 04:37 BUN 17 mg/dL (6-20) 08/03/21 04:37 Creatinine 0.7 mg/dL (0.4-1.0) 08/03/21 04:37 Estimated GFR (MDRD) 80 (>89) L 08/03/21 04:37 Glucose 89 mg/dL (70-100) 08/03/21 04:37 Calcium 9.2 mg/dL (8.5-10.3) 08/03/21 04:37 Nasal Adenovirus (PCR) NOT DETECTED 08/02/21 10:16 Nasal B. parapertussis DNA (PCR) NOT DETECTED 08/02/21 10:16 Nasal Coronavir 229E PCR NOT DETECTED 08/02/21 10:16 Nasal Coronavir HKU1 PCR NOT DETECTED 08/02/21 10:16 Nasal Coronavir NL63 PCR NOT DETECTED 08/02/21 10:16 Nasal Coronavir OC43 PCR NOT DETECTED 08/02/21 10:16 Nasal Enterovir/Rhinovir PCR NOT DETECTED 08/02/21 10:16 Nasal Influenza B PCR NOT DETECTED 08/02/21 10:16 Nasal Influenza A PCR NOT DETECTED 08/02/21 10:16 Nasal Parainfluen 1 PCR NOT DETECTED 08/02/21 10:16 Nasal Parainfluen 2 PCR NOT DETECTED 08/02/21 10:16 Nasal Parainfluen 3 PCR NOT DETECTED 08/02/21 10:16 Nasal Parainfluen 4 PCR NOT DETECTED 08/02/21 10:16 Nasal RSV (PCR) NOT DETECTED 08/02/21 10:16 Nasal B.pertussis DNA PCR NOT DETECTED 08/02/21 10:16 Nasal C.pneumoniae (PCR) NOT DETECTED 08/02/21 10:16 Franki Human Metapneumo PCR NOT DETECTED 08/02/21 10:16 Nasal M.pneumoniae (PCR) NOT DETECTED 08/02/21 10:16 Nasal SARS-CoV-2 (PCR) NOT DETECTED 08/02/21 10:16 ABX Reporting Has patient been on IV antibiotics over the past 48 hours?: No Current Medications - Current Medications Current Medications: Active Medications Acetaminophen (Acetaminophen 325 Mg Tablet) 650 mg PO Q4HR PRN PRN Reason: Pain 1 to 4 Last Admin: 08/03/21 06:09 Dose: 650 mg Documented by: Hydrocodone Bitart/Acetaminophen (Hydrocod/Acetam 5/325 Mg Tablet) 1 tab PO Q4HR PRN PRN Reason: Pain 5 to 7 Last Admin: 08/03/21 14:15 Dose: 1 tab Documented by: Amlodipine Besylate (Amlodipine 5 Mg Tablet) 2.5 mg PO DAILY [facility] Last Admin: 08/03/21 10:13 Dose: 2.5 mg Documented by: Aspirin (Aspirin Chew 81 Mg Tablet) 81 mg PO DAILY [facility] Last Admin: 08/03/21 10:11 Dose: 81 mg Documented by: Atorvastatin Calcium (Atorvastatin 40 Mg Tablet) 80 mg PO DAILY [facility] Last Admin: 08/03/21 10:12 Dose: 80 mg Documented by: Diphenoxylate HCl/Atropine (Diphenox/Atropine 2.5/0.025 Mg Tablet) 1 tab PO QID PRN PRN Reason: Diarrhea Last Admin: 08/03/21 00:46 Dose: 1 tab Documented by: Enoxaparin Sodium (Enoxaparin 40 Mg/0.4 Ml Syringe) 40 mg SUBQ DAILY [facility] Hydromorphone HCl (Hydromorphone 0.5 Mg/0.5 Ml Syringe) 0.5 mg IVP Q2H PRN PRN Reason: Pain 8 to 10 Sodium Chloride (Normal Saline 0.9%) 1,000 mls @ 100 mls/hr IV .Q10H [facility] Last Admin: 08/03/21 11:15 Dose: 100 mls/hr Documented by: Losartan Potassium (Losartan 50 Mg Tablet) 100 mg PO DAILY [facility] Last Admin: 08/03/21 10:11 Dose: 100 mg Documented by: Metoprolol Succinate (Metoprolol Succinate 25 Mg Tablet) 25 mg PO DAILY [facility] Last Admin: 08/03/21 10:13 Dose: 25 mg Documented by: Ondansetron HCl (Ondansetron 4 Mg/2 Ml Vial) 4 mg IVP Q6HR PRN PRN Reason: Nausea / Vomiting Pantoprazole Sodium (Pantoprazole 40 Mg Tablet) 40 mg PO QDAC MARY Sodium Chloride (Sodium Chloride Flush 0.9% 10 Ml Syringe) 10 ml IVP PRN PRN PRN Reason: NEEDED PER PROVIDER ORDERS Sodium Chloride (Sodium Chloride Flush 0.9% 10 Ml Syringe) 10 ml IVP 010 0,0900,1700 [facility] Last Admin: 08/02/21 23:42 Dose: 10 ml Documented by: Losartan [Cozaar] 100 mg PO DAILY 01/14/15 Aspirin Chewable [[place] Aspirin] 81 mg PO DAILY 08/02/21 Atorvastatin Calcium [Lipitor] 80 mg PO DAILY 08/02/21 Melatonin/Pyridoxine [Melatonin 5 mg Tablet] 1 tablet PO DAILY 08/02/21 Metoprolol Succinate [Toprol Xl] 25 mg PO DAILY 08/02/21 amLODIPine [Norvasc] 2.5 mg PO DAILY 08/02/21
[2021-08-03] MEDS ORDERED: KETAMINE 500 MG/10 ML VIAL ONE (15:11)
[2021-08-03] MEDS ORDERED: PROPOFOL 500 MG/50 ML 500 MG/50 ML VIAL ONE ×2 (15:11→16:27)
[2021-08-03] MEDS ORDERED: VASOPRESSIN 20 UNIT/ML VIAL ONE (15:15)
[2021-08-03] MEDS ORDERED: ONDANSETRON 4 MG/2 ML VIAL ONE (15:16)
[2021-08-03] MEDS ORDERED: PHENYLEPHRINE 10 MG/ML VIAL ONE (15:16)
[2021-08-03] MEDS ORDERED: LACTATED RINGERS 1,000 ML IV ONE ×2 (16:05→18:02)
[2021-08-03] MEDS: SODIUM CHLORIDE FLUSH 0.9% 10 ML SYRINGE IVP SCH (16:10)
--- NOTE | 2021-08-03 16:25 | PROVIDER PROGRESS NOTE ---
Hospitalist Cross-cover Note - Cross-Cover Note Cross-Cover Note: This afternoon, the PA Sumit Cespedes, Manufacturing Engineer Autom[employer] to Dr. Eastman, learned that this patient has a history of "2 cardiac arrests" in her past. He questioned if her preop risk assessment is the same and requested further recommendations. I called Keyana Mcallister the Anesthesia provider and advised that this patient's procedure today be postponed until I get more details regarding these past cardiac events. The patient was already in the OR, had gotten some Fentynyl, but no spinal anesthesia yet. I called the [id number] Dana ([phone]) and received some information about her events. In May 2018 the pt was having chest pain, had an abnormal stress test and was admitted to [facility] for stenting of the LAD coronary artery. She had hypotension and bradycardia after both stents and needed to be hospitalized in the ICU. The family was never told the cause of both events (complications), and Dana said the patient would not remenber as she is becoming forgetful. The patient went back to see the Tiler at [facility] once. The patient has had no recent stress testing. Since the time of these stenting procedures, she has had no angina, according to Dana. I reviewed the pre-op EKG done today at 0030. It showed NSR and was WNL. We called for discharge summary records of the May 2018 hospitalization at [facility] be FAXed here STAT. The records were obtained in a timely manner and reviewed. In the post-procedure time period, the patient developed hypotension which was felt to be from significant blood loss, and she required 1 unit packed red blood cells transfused. She was taken to the ICU and had continued chest pain. Subsequently she was taken back to the [facility] to stent another area of the LAD which was done successfully. The previopus stent was reported to be patent with good flow. She again developed complications of a large groin hematoma which caused hypotension. She was finally discharged in stable condition with a lower dose of beta-kareen. Dr Lund's H&P and pre-op assessment done last night, had no information about these events surrounding her stents (possibly because the patient had a poor memory, as per Dana). There was documentation of no ongoing angina in the H&P. I then spoke to Dr Eastman regarding clearance to proceed with today's hip surgery. I then spoke to Keyana Mcallister regarding the details learned from the discharge record and recommended that the hip surgery can proceed today. (CRITICAL CARE TIME SPENT: 30 min)
[2021-08-03] MEDS ORDERED: SODIUM CHLORIDE 0.9% 10 ML VIAL IVP ONE ×2 (16:29→17:37)
[2021-08-03] MEDS ORDERED: ceFAZolin 1 GM VIAL ONE (16:56)
[2021-08-03] MEDS ORDERED: ROPIVACAINE 0.5% PF 20 ML AMPULE ONE (17:37)
[2021-08-03] MEDS ORDERED: DEXAMETHASONE 4 MG/ML VIAL ONE (17:38)
--- NOTE | 2021-08-03 17:45 | OPERATIVE REPORT ---
Operative Report - General Admit Date: 08/02/21 Procedure Date: 08/03/21 Planned Procedure: Percutaneous screw fixation femoral neck fracture left hip Pre-Op Diagnosis: Mildly displaced femoral neck fracture left hip Procedure Performed: Percutaneous cannulated screw fixation femoral neck fracture left hip Post Op Diagnosis: Same as preoperative diagnosis - Procedure Note Primary Surgeon: Cortes Eastman MD Secondary Surgeon: Sumit LISA Anesthesia Provider: Keyana Mcallister CRNA Anesthesia Technique: Regional block, Spinal Estimated Blood Loss (mL): 5 Indications: This is an 81-year-old woman who fell yesterday, was able to ambulate after the fall but had pain to her left hip with weightbearing. Her pain increased and was seen yesterday evening in the emergency room. She was found to have a femoral neck fracture left hip, admitted to the hospitalist service, medically evaluated and was felt to be stable. I discussed the procedure with the patient, and [id number]. Both were in agreement to the procedure, percutaneous cannulated screw fixation left hip femoral neck fracture. The pros and cons of screw fixation versus arthroplasty were discussed including potential revision surgery. She does have a past history of cardiac arrest, coronary artery disease, probably some dementia but overall is relatively stable and has been ambulatory without previous left hip problems Findings: Minimally displaced femoral neck fracture left hip with biplanar C-arm imaging. Complications: None - Other Other Information/Narrative: Patient surgery was to be performed earlier this afternoon but it was temporarily canceled by our hospitalist. The hospitalist felt that additional of cardiac information was necessary before allowing patient to proceed with anesthesia. After a short investigation, the patient was brought back from the recovery room after being given sedation. She was then given a spinal anesthet ic after the hospitalist found that the cardiac arrest was associated with some bleeding and hematoma for an event that occurred in approximately 2017 The patient was placed in a supine position on the MICU no fracture table after satisfactory anesthesia had been achieved. The left hip and lower extremity were prepped and draped in sterile manner in the usual fashion. A timeout procedure was performed by the entire operating room team and all were in agreement. The C-arm image intensifier was used for biplanar imaging and was covered with a sterile drape. A proximally 2.5 cm incision was made just distal to the greater trochanter. This allowed insertion of 3 guidepins placed relatively parallel in a triangular pattern. These guidepins had threaded tips. After positioning them in an appropriate fashion, the depth of the pins were measured, pins gently impacted. The lateral cortex was drilled with a cannulated drill. The [employer] stainless steel 7.0 mm partially-threaded lag screws were inserted. The most distal screw had a washer and the 2 additional screws more proximally did not have a washer. Very good purchase of the screws was obtained from the 3 cancellous screws. The screws appear to be well-positioned, avoiding the joint and the fracture appear to be in very good position as well. The wound was irrigated. The subcutaneous tissue was closed with 2-0 Vicryl, skin closed with 3-0 Monocryl suture, Dermabond, silver impregnated dressing. Patient tolerated procedure well. She received 2 g of Ancef intravenously. A physician events and promotions assistant was utilized, felt to be medically necessary to help with the positioning, draping, insertion of guidepins, wound closure.
[2021-08-03] MEDS ORDERED: ATROPINE ABBOJECT 1 MG/10 ML SYRINGE IVP PRN (18:07)
[2021-08-03] MEDS ORDERED: ONDANSETRON 4 MG/2 ML VIAL IVP PRN (18:07)
[2021-08-03] MEDS ORDERED: NALOXONE 0.4 MG/ML VIAL IVP PRN (18:07)
[2021-08-03] MEDS ORDERED: MORPHINE 2 MG/ML CARPUJECT IVP PRN (18:07)
[2021-08-03] MEDS ORDERED: HYDROmorphone 0.5 MG/0.5 ML SYRINGE IVP PRN (18:07)
[2021-08-03] MEDS ORDERED: fentaNYL 100 MCG/2 ML VIAL IVP PRN (18:07)
--- NOTE | 2021-08-03 18:23 | ANESTHESIA POST OP EVALUATION ---
Anesthesia Post Eval - Post Anesthesia Eval Vitals: Last Vital Signs Temp 36.6 C 08/03/21 18:22 Pulse 70 08/03/21 18:22 Resp 16 08/03/21 18:22 BP 141/63 H 08/03/21 18:22 Pulse Ox 96 08/03/21 18:22 CV Function Including HR & BP: Stable Pain Control: Satisfactory Nausea & Vomiting: Negative Mental Status: Baseline Respiratory Status: Airway Patent Hydration Status: Satisfactory Anesthesia Complications: None
[2021-08-03] MEDS ORDERED: LACTATED RINGERS 1,000 ML IV SCH (19:00)
[2021-08-03] MEDS: CALCIUM CARBONATE CHEW 500 MG TABLET PO SCH (21:10)
[2021-08-03] MEDS: ceFAZolin 2 GM in SODIUM CHLORIDE 0.9% 100ML 100 ML IV SCH (23:56)
[2021-08-04] MEDS: SODIUM CHLORIDE 0.9% 1,000 ML IV SCH (04:59)
[2021-08-04] MEDS: SODIUM CHLORIDE FLUSH 0.9% 10 ML SYRINGE IVP SCH ×4 (05:01→23:55)
[2021-08-04 05:12] LABS: BASOPHILS % (AUTO) 0.2 %; EOSINOPHILS # (AUTO) 0.1 10^3/uL (0.0-0.7); HCT - HEMATOCRIT 38.7 % (37.0-47.0); HGB - HEMOGLOBIN 13.1 g/dL (12.0-16.0); LYMPHOCYTES # (AUTO) 0.4 10^3/uL (1.5-3.5); MEAN CORPUSCULAR HEMOGLOBIN 32.9 pg (27.0-31.0); MEAN CORPUSCULAR HGB CONC 33.9 g/dL (32.0-36.0); MEAN CORPUSCULAR VOLUME 97.2 fL (81.0-99.0); MEAN PLATELET VOLUME 10.1 fL (7.9-10.8); MONOCYTES # (AUTO) 0.2 10^3/uL (0.0-1.0); MONOCYTES % (AUTO) 3.1 %; NEUTROPHILS # (AUTO) 5.2 10^3/uL (1.5-6.6); NEUTROPHILS % (AUTO) 88.5 %; PLT - PLATELET COUNT 144 10^3/uL (130-450); RED BLOOD COUNT 3.98 10^6/uL (4.20-5.40); RED CELL DISTRIBUTION WIDTH 12.1 % (12.0-15.0); WHITE BLOOD COUNT 5.9 x10^3/uL (4.8-10.8)
[2021-08-04 05:18] LABS: CREATININE 0.7 mg/dL (0.4-1.0); POTASSIUM 3.9 mmol/L (3.5-5.0)
[2021-08-04] MEDS: PANTOPRAZOLE 40 MG TABLET PO SCH (06:41)
[2021-08-04] MEDS: LOSARTAN 50 MG TABLET PO SCH (08:31)
[2021-08-04] MEDS: METOPROLOL SUCCINATE 25 MG TABLET PO SCH (08:31)
[2021-08-04] MEDS: amLODIPine 5 MG TABLET PO SCH (08:32)
[2021-08-04] MEDS ORDERED: SODIUM CHLORIDE 0.9% 100ML 100 ML IV ONE (08:32)
[2021-08-04] MEDS: CHOLECALCIFEROL 25 MCG TABLET PO SCH (08:33)
[2021-08-04] MEDS: MULTIVITAMIN W/MINERALS TABLET PO SCH (08:33)
[2021-08-04] MEDS: ASPIRIN CHEW 81 MG TABLET PO SCH (08:34)
[2021-08-04] MEDS: CALCIUM CARBONATE CHEW 500 MG TABLET PO SCH ×2 (08:34→20:19)
[2021-08-04] MEDS: ATORVASTATIN 40 MG TABLET PO SCH (08:34)
[2021-08-04] MEDS: HYDROcod/ACETAM 5/325 MG TABLET PO PRN ×3 (08:35→20:19)
[2021-08-04] MEDS: ENOXAPARIN 40 MG/0.4 ML SYRINGE SUBQ SCH (08:36)
[2021-08-04] MEDS: ceFAZolin 2 GM in SODIUM CHLORIDE 0.9% 100ML 100 ML IV SCH (08:38)
--- NOTE | 2021-08-04 09:20 | PROVIDER PROGRESS NOTE ---
Subjective - General Admit Date: 08/02/21 Procedure Date: 08/03/21 Post Op Days: 1 Procedure Performed: Percutaneous pinning of a left hip femoral fracture - Review of Systems Wound/Incisions: positive: Dressing dry and intact General: negative: Fever, Chills Pulmonary: negative: Shortness of breath Gastrointestinal: negative: Nausea, Vomiting Musculoskeletal: positive: Joint pain (Patient is an 81-year-old female for history including CAD With stent placement, anemia, hypertension Postop day one after a percutaneous pinning of a left femoral neck fracture performed by Dr Cortes Eastman at [facility] on 08/03/2021.) Objective - Patient Data Reviewed Vital Signs: Yes Vital Signs: Vital Signs x48h Temp Pulse Resp BP Pulse Ox 08/04/21 08:42 83 106/56 L 08/04/21 08:06 36.2 C L 68 20 121/56 L 98 08/04/21 04:41 36.8 C 63 20 128/51 L 96 Weight: Weight 08/02/21 08/03/21 08/04/21 23:59 23:59 23:59 Weight (kg) 56.699 kg 54.5 kg Intake & Output: Intake and Output Totals x24h 08/02/21 08/03/21 08/04/21 23:59 23:59 23:59 Intake Total 2135 1656.667 Output Total 2350 700 Balance -215 956.667 - Lab Results Lab Results: 08/04/21 05:00 08/04/21 05:00 Other Lab Results: Lab Results x24hrs 08/04/21 08/04/21 08/03/21 Range/Units 05:00 05:00 09:21 WBC 5.9 (4.8-10.8) x10^3/uL RBC 3.98 L (4.20-5.40) 10^6/uL Hgb 13.1 (12.0-16.0) g/dL Hct 38.7 (37.0-47.0) % MCV 97.2 (81.0-99.0) fL MCH 32.9 H (27.0-31.0) pg MCHC 33.9 (32.0-36.0) g/dL RDW 12.1 (12.0-15.0) % Plt Count 144 (130-450) 10^3/uL MPV 10.1 (7.9-10.8) fL Neut # (Auto) 5.2 (1.5-6.6) 10^3/uL Lymph # (Auto) 0.4 L (1.5-3.5) 10^3/uL Stephens # (Auto) 0.2 (0.0-1.0) 10^3/uL Eos # (Auto) 0.1 (0.0-0.7) 10^3/uL Baso # (Auto) 0.0 (0.0-0.1) 10^3/uL Absolute Nucleated RBC 0.00 x10^3/uL Nucleated RBC % 0.0 /100WBC PT 14.8 H (9.9-12.6) secs INR 1.3 H (0.8-1.2) Sodium 143 (135-145) mmol/L Potassium 3.9 (3.5-5.0) mmol/L Chloride 108 (101-111) mmol/L Carbon Dioxide 23 (21-32) mmol/L Anion Gap 12.0 (6-13) BUN 13 (6-20) mg/dL Creatinine 0.7 (0.4-1.0) mg/dL Estimated GFR (MDRD) 80 L (>89) Glucose 126 H (70-100) mg/dL Calcium 9.0 (8.5-10.3) mg/dL - Imaging Results Radiology Imaging: positive: Other (C arm radiographs were independently visualized intraoperatively to show good reduction of femoral neck fracture with anatomical alignment and placement of three percutaneous screws with no apparent hardware loosening.) - Current Medications Current Medications: Current Medications Generic Name Dose Route Start Last Admin Trade Name Freq PRN Reason Stop Dose Admin Acetaminophen 650 mg 08/02/21 22:19 08/03/21 06:09 Acetaminophen 325 Mg Tablet PO 650 mg Q4HR PRN Administration Pain 1 to 4 Hydrocodone Bitart/Acetaminophen 1 tab 08/02/21 22:19 08/04/21 08:35 Hydrocod/Acetam 5/325 Mg Tablet PO 1 tab Q4HR PRN Administration Pain 5 to 7 Amlodipine Besylate 2.5 mg 08/03/21 09:00 08/04/21 08:32 Amlodipine 5 Mg Tablet PO 2.5 mg DAILY MARY Administration Aspirin 81 mg 08/03/21 09:00 08/04/21 08:34 Aspirin Chew 81 Mg Tablet PO 81 mg DAILY MARY Administration Atorvastatin Calcium 80 mg 08/03/21 09:00 08/04/21 08:34 Atorvastatin 40 Mg Tablet PO 80 mg DAILY MARY Administration Calcium Carbonate/Glycine 500 mg 08/03/21 21:00 08/04/21 08:34 Calcium Carbonate Chew 500 Mg Tablet PO 500 mg BID MARY Administration Cholecalciferol 50 mcg 08/04/21 09:00 08/04/21 08:33 Cholecalciferol 25 Mcg Tablet PO 50 mcg DAILY MARY Administration Diphenoxylate HCl/Atropine 1 tab 08/02/21 22:51 08/03/21 00:46 Diphenox/Atropine 2.5/0.025 Mg Tablet PO 1 tab QID PRN Administration Diarrhea Enoxaparin Sodium 40 mg 08/04/21 09:00 08/04/21 08:36 Enoxaparin 40 Mg/0.4 Ml Syringe SUBQ 40 mg DAILY MARY Administration Cefazolin Sodium 2 gm/ Sodium 100 mls @ 200 mls/hr 08/04/21 00:00 08/04/21 08:38 Chloride IV 200 mls/hr Q8H MARY Administration Losartan Potassium 100 mg 08/03/21 09:00 08/04/21 08:31 Losartan 50 Mg Tablet PO 100 mg DAILY MARY Administration Metoprolol Succinate 25 mg 08/03/21 09:00 08/04/21 08:31 Metoprolol Succinate 25 Mg Tablet PO 25 mg DAILY MARY Administration Multivitamins/Minerals 1 tab 08/04/21 08:00 08/04/21 08:33 Multivitamin W/Minerals Tablet PO 1 tab DAILYWM [facility] Administration Pantoprazole Sodium 40 mg 08/04/21 07:00 08/04/21 06:41 Pantoprazole 40 Mg Tablet PO 40 mg QDAC [facility] Administration Sodium Chloride 10 ml 08/03/21 01:00 08/04/21 08:38 Sodium Chloride Flush 0.9% 10 Ml Syringe IVP Not Given 0100,0900,1700 [facility] - Physical Exam Wound/Incisions: positive: Dressing dry and intact General Appearance: positive: No acute distress Respiratory: positive: No respiratory distress Skin: positive: Color nml, No rash, Warm, Dry Extremities: positive: Joint swelling ABX Reporting Has patient been on IV antibiotics over the past 48 hours?: Yes Impression/Plan - Problem List Problem List: Patient is an 81-year-old female with medical history includes CAD with two more stent placed, anemia, hypertension who was an orthopedic consult for a left femoral neck fracture that was reduced by Dr Cortes Eastman at [facility] on 08/03/2021 utilizing three percutaneous screws. Patient pain is well controlled she shows no signs or symptoms of infection or complications. She is weightbearing as tolerated in front wheeled walker. Ancef was given preoperatively with two doses postop finishing today. Patient is admitted under the hospitalist who will manage anticoagulation and other medical management. Patient is cleared from an orthopedic surgical standpoint for discharge.
--- NOTE | 2021-08-04 14:42 | PROVIDER PROGRESS NOTE ---
Assessment/Plan - Problem List (1) Hip fracture, left Qualifiers: Encounter type: initial encounter Fracture type: closed Qualified Code(s): S72.002A - Fracture of unspecified part of neck of left femur, initial encounter for closed fracture Assessment/Plan: 08/04 This is day 1 after s/p left hip repair. pt is doing well, no other complication. continue PT/OT, pain control, consult with web content & social media manager for d/c plan 08/03 pt is on surgery for her hip repair. we will followup s/p care, resume cardiac diet, pain control, PT/OT followup, lovenox for DVT prophylaxis, incentive spirometer for s/p care, Consult with social work for disposition planning (2) CAD (coronary artery disease) stable. pt was resumed her home meds Metoprolol succinate 25 mg p.o. daily, losartan 100 mg p.o. daily, Atorvastatin 80mg po daily and baby aspirin daily (3) Hypertension Conclusion/Plan: stable, continue On metoprolol, amlodipine and losartan (4) Hyperlipidemia continue On atorvastatin 80mg po daily - Current Meds Current Meds: Current Medications Generic Name Dose Route Start Last Admin Trade Name Freq PRN Reason Stop Dose Admin Acetaminophen 650 mg 08/02/21 22:19 08/03/21 06:09 Acetaminophen 325 Mg Tablet PO 650 mg Q4HR PRN Administration Pain 1 to 4 Hydrocodone Bitart/Acetaminophen 1 tab 08/02/21 22:19 08/04/21 14:37 Hydrocod/Acetam 5/325 Mg Tablet PO 1 tab Q4HR PRN Administration Pain 5 to 7 Amlodipine Besylate 2.5 mg 08/03/21 09:00 08/04/21 08:32 Amlodipine 5 Mg Tablet PO 2.5 mg DAILY MARY Administration Aspirin 81 mg 08/03/21 09:00 08/04/21 08:34 Aspirin Chew 81 Mg Tablet PO 81 mg DAILY MARY Administration Atorvastatin Calcium 80 mg 08/03/21 09:00 08/04/21 08:34 Atorvastatin 40 Mg Tablet PO 80 mg DAILY MARY Administration Calcium Carbonate/Glycine 500 mg 08/03/21 21:00 08/04/21 08:34 Calcium Carbonate Chew 500 Mg Tablet PO 500 mg BID MARY Administration Cholecalciferol 50 mcg 08/04/21 09:00 08/04/21 08:33 Cholecalciferol 25 Mcg Tablet PO 50 mcg DAILY MARY Administration Diphenoxylate HCl/Atropine 1 tab 08/02/21 22:51 08/03/21 00:46 Diphenox/Atropine 2.5/0.025 Mg Tablet PO 1 tab QID PRN Administration Diarrhea Enoxaparin Sodium 40 mg 08/04/21 09:00 08/04/21 08:36 Enoxaparin 40 Mg/0.4 Ml Syringe SUBQ 40 mg DAILY MARY Administration Losartan Potassium 100 mg 08/03/21 09:00 08/04/21 08:31 Losartan 50 Mg Tablet PO 100 mg DAILY MARY Administration Metoprolol Succinate 25 mg 08/03/21 09:00 08/04/21 08:31 Metoprolol Succinate 25 Mg Tablet PO 25 mg DAILY MARY Administration Multivitamins/Minerals 1 tab 08/04/21 08:00 08/04/21 08:33 Multivitamin W/Minerals Tablet PO 1 tab DAILYWM [facility]ARY Administration Pantoprazole Sodium 40 mg 08/04/21 07:00 08/04/21 06:41 Pantoprazole 40 Mg Tablet PO 40 mg QDAC MARY Administration Sodium Chloride 10 ml 08/02/21 22:19 08/04/21 09:28 Sodium Chloride Flush 0.9% 10 Ml Syringe IVP 10 ml PRN PRN Administration NEEDED PER PROVIDER ORDERS Sodium Chloride 10 ml 08/03/21 01:00 08/04/21 08:38 Sodium Chloride Flush 0.9% 10 Ml Syringe IVP Not Given 0100,0900,1700 MARY - Lab Result Fish Bone Diagrams: 08/04/21 05:00 08/04/21 05:00 - Additional Planning My Orders: My Active Orders 08/03/21 Dinner Cardiac Diet [DIET] 08/03/21 21:00 Calcium Carbonate [Tums] 500 mg PO BID 08/04/21 Evaluate and Treat OT [OT] Routine 08/04/21 07:00 Pantoprazole [Protonix] 40 mg PO QDAC 08/04/21 08:00 Multivitamin W/Minerals [Theragran M] 1 tab PO DAILYWM 08/04/21 09:00 Cholecalciferol [Vitamin D3] 50 mcg PO DAILY Enoxaparin [Lovenox] 40 mg SUBQ DAILY Subjective - Subjective Patient Reports: Feeling Better, Resting Comfortably Objective Vital Signs: Vital Signs - 24 hr 08/03/21 08/03/21 08/03/21 15:54 16:00 16:10 Temperature 36.4 C L 36.8 C 36.4 C L Heart Rate 75 77 Heart Rate [ 75 Brachial] Heart Rate [ Sitting] Respiratory 22 20 19 Rate Blood Pressure 143/64 H 144/61 H Blood Pressure 125/59 L [Right Brachial artery] Blood Pressure [Sitting] O2 Saturation 99 94 99 08/03/21 08/03/21 08/03/21 18:00 18:08 18:11 Temperature 36.8 C 36.6 C 36.6 C Heart Rate 69 64 65 Heart Rate [ Brachial] Heart Rate [ Sitting] Respiratory 15 12 16 Rate Blood Pressure 112/59 L 132/65 H 134/91 H Blood Pressure [Right Brachial artery] Blood Pressure [Sitting] O2 Saturation 96 97 97 08/03/21 08/03/21 08/03/21 18:16 18:22 19:00 Temperature 36.6 C 36.6 C 36.8 C Heart Rate 61 70 Heart Rate [ 78 Brachial] Heart Rate [ Sitting] Respiratory 14 16 18 Rate Blood Pressure 128/57 L 141/63 H Blood Pressure 138/57 H [Right Brachial artery] Blood Pressure [Sitting] O2 Saturation 98 96 96 08/03/21 08/03/21 08/03/21 19:30 21:00 21:50 Temperature 36.9 C 36.8 C Heart Rate Heart Rate [ 74 75 75 Brachial] Heart Rate [ Sitting] Respiratory 18 18 18 Rate Blood Pressure Blood Pressure 144/56 H 142/61 H 134/57 H [Right Brachial artery] Blood Pressure [Sitting] O2 Saturation 95 96 95 08/03/21 08/04/21 08/04/21 23:38 04:41 08:06 Temperature 36.2 C L 36.8 C 36.2 C L Heart Rate Heart Rate [ 70 63 68 Brachial] Heart Rate [ Sitting] Respiratory 20 20 20 Rate Blood Pressure Blood Pressure 119/61 128/51 L 121/56 L [Right Brachial artery] Blood Pressure [Sitting] O2 Saturation 98 96 98 08/04/21 08/04/21 08/04/21 08:42 12:16 13:15 Temperature 37 C Heart Rate Heart Rate [ 83 77 Brachial] Heart Rate [ 74 Sitting] Respiratory 18 Rate Blood Pressure Blood Pressure 106/56 L 113/41 L [Right Brachial artery] Blood Pressure 112/55 L [Sitting] O2 Saturation 100 Oxygen O2 Source Room air I&O (Last 24 Hrs): Intake and Output Totals x24h 08/02/21 08/03/21 08/04/21 23:59 23:59 23:59 Intake Total 2135 2496.667 Output Total 2350 2500 Balance -215 -3.333 General: Alert, Oriented x3, Cooperative, No acute distress HEENT: Atraumatic, PERRLA Neck: Supple Lymphatic: no adenopathy Neuro: Alert, Non Focal, Oriented Times 3 Cardiovascular: Regular rate, Normal S1, Normal S2 Respiratory: Chest non-tender, No respiratory distress Abdomen: Normal bowel sounds, Soft, No tenderness Extremities: Normal pulses - Results Results: Laboratory Results WBC 5.9 x10^3/uL (4.8-10.8) 08/04/21 05:00 RBC 3.98 10^6/uL (4.20-5.40) L 08/04/21 05:00 Hgb 13.1 g/dL (12.0-16.0) 08/04/21 05:00 Hct 38.7 % (37.0-47.0) 08/04/21 05:00 MCV 97.2 fL (81.0-99.0) 08/04/21 05:00 MCH 32.9 pg (27.0-31.0) H 08/04/21 05:00 MCHC 33.9 g/dL (32.0-36.0) 08/04/21 05:00 RDW 12.1 % (12.0-15.0) 08/04/21 05:00 Plt Count 144 10^3/uL (130-450) 08/04/21 05:00 MPV 10.1 fL (7.9-10.8) 08/04/21 05:00 Neut # (Auto) 5.2 10^3/uL (1.5-6.6) 08/04/21 05:00 Lymph # (Auto) 0.4 10^3/uL (1.5-3.5) L 08/04/21 05:00 [place] # (Auto) 0.2 10^3/uL (0.0-1.0) 08/04/21 05:00 Eos # (Auto) 0.1 10^3/uL (0.0-0.7) 08/04/21 05:00 Baso # (Auto) 0.0 10^3/uL (0.0-0.1) 08/04/21 05:00 Absolute Nucleated RBC 0.00 x10^3/uL 08/04/21 05:00 Nucleated RBC % 0.0 /100WBC 08/04/21 05:00 PT 14.8 secs (9.9-12.6) H 08/03/21 09:21 INR 1.3 (0.8-1.2) H 08/03/21 09:21 Sodium 143 mmol/L (135-145) 08/04/21 05:00 Potassium 3.9 mmol/L (3.5-5.0) 08/04/21 05:00 Chloride 108 mmol/L (101-111) 08/04/21 05:00 Carbon Dioxide 23 mmol/L (21-32) 08/04/21 05:00 Anion Gap 12.0 (6-13) 08/04/21 05:00 BUN 13 mg/dL (6-20) 08/04/21 05:00 Creatinine 0.7 mg/dL (0.4-1.0) 08/04/21 05:00 Estimated GFR (MDRD) 80 (>89) L 08/04/21 05:00 Glucose 126 mg/dL (70-100) H 08/04/21 05:00 Calcium 9.0 mg/dL (8.5-10.3) 08/04/21 05:00 Nasal Adenovirus (PCR) NOT DETECTED 08/02/21 10:16 Nasal B. parapertussis DNA (PCR) NOT DETECTED 08/02/21 10:16 Nasal Coronavir 229E PCR NOT DETECTED 08/02/21 10:16 Nasal Coronavir HKU1 PCR NOT DETECTED 08/02/21 10:16 Nasal Coronavir NL63 PCR NOT DETECTED 08/02/21 10:16 Nasal Coronavir OC43 PCR NOT DETECTED 08/02/21 10:16 Nasal Enterovir/Rhinovir PCR NOT DETECTED 08/02/21 10:16 Nasal Influenza B PCR NOT DETECTED 08/02/21 10:16 Nasal Influenza A PCR NOT DETECTED 08/02/21 10:16 Nasal Parainfluen 1 PCR NOT DETECTED 08/02/21 10:16 Nasal Parainfluen 2 PCR NOT DETECTED 08/02/21 10:16 Nasal Parainfluen 3 PCR NOT DETECTED 08/02/21 10:16 Nasal Parainfluen 4 PCR NOT DETECTED 08/02/21 10:16 Nasal RSV (PCR) NOT DETECTED 08/02/21 10:16 Nasal B.pertussis DNA PCR NOT DETECTED 08/02/21 10:16 Nasal C.pneumoniae (PCR) NOT DETECTED 08/02/21 10:16 Franki Human Metapneumo PCR NOT DETECTED 08/02/21 10:16 Nasal M.pneumoniae (PCR) NOT DETECTED 08/02/21 10:16 Nasal SARS-CoV-2 (PCR) NOT DETECTED 08/02/21 10:16 ABX Reporting Has patient been on IV antibiotics over the past 48 hours?: No Current Medications - Current Medications Current Medications: Active Medications Acetaminophen (Acetaminophen 325 Mg Tablet) 650 mg PO Q4HR PRN PRN Reason: Pain 1 to 4 Last Admin: 08/03/21 06:09 Dose: 650 mg Documented by: Hydrocodone Bitart/Acetaminophen (Hydrocod/Acetam 5/325 Mg Tablet) 1 tab PO Q4H R PRN PRN Reason: Pain 5 to 7 Last Admin: 08/04/21 14:37 Dose: 1 tab Documented by: Amlodipine Besylate (Amlodipine 5 Mg Tablet) 2.5 mg PO DAILY [facility] Last Admin: 08/04/21 08:32 Dose: 2.5 mg Documented by: Aspirin (Aspirin Chew 81 Mg Tablet) 81 mg PO DAILY [facility] Last Admin: 08/04/21 08:34 Dose: 81 mg Documented by: Atorvastatin Calcium (Atorvastatin 40 Mg Tablet) 80 mg PO DAILY [facility] Last Admin: 08/04/21 08:34 Dose: 80 mg Documented by: Calcium Carbonate/Glycine (Calcium Carbonate Chew 500 Mg Tablet) 500 mg PO BID [facility] Last Admin: 08/04/21 08:34 Dose: 500 mg Documented by: Cholecalciferol (Cholecalciferol 25 Mcg Tablet) 50 mcg PO DAILY [facility] Last Admin: 08/04/21 08:33 Dose: 50 mcg Documented by: Diphenoxylate HCl/Atropine (Diphenox/Atropine 2.5/0.025 Mg Tablet) 1 tab PO QID PRN PRN Reason: Diarrhea Last Admin: 08/03/21 00:46 Dose: 1 tab Documented by: Enoxaparin Sodium (Enoxaparin 40 Mg/0.4 Ml Syringe) 40 mg SUBQ DAILY [facility] Last Admin: 08/04/21 08:36 Dose: 40 mg Documented by: Hydromorphone HCl (Hydromorphone 0.5 Mg/0.5 Ml Syringe) 0.5 mg IVP Q2H PRN PRN Reason: Pain 8 to 10 Losartan Potassium (Losartan 50 Mg Tablet) 100 mg PO DAILY [facility] Last Admin: 08/04/21 08:31 Dose: 100 mg Documented by: Metoprolol Succinate (Metoprolol Succinate 25 Mg Tablet) 25 mg PO DAILY [facility] Last Admin: 08/04/21 08:31 Dose: 25 mg Documented by: Multivitamins/Minerals (Multivitamin W/Minerals Tablet) 1 tab PO DAILYWM [facility] Last Admin: 08/04/21 08:33 Dose: 1 tab Documented by: Ondansetron HCl (Ondansetron 4 Mg/2 Ml Vial) 4 mg IVP Q6HR PRN PRN Reason: Nausea / Vomiting Pantoprazole Sodium (Pantoprazole 40 Mg Tablet) 40 mg PO QDAC [facility] Last Admin: 08/04/21 06:41 Dose: 40 mg Documented by: Sodium Chloride (Sodium Chloride Flush 0.9% 10 Ml Syringe) 10 ml IVP PRN PRN PRN Reason: NEEDED PER PROVIDER ORDERS Last Admin: 08/04/21 09:28 Dose: 10 ml Documented by: Sodium Chloride (Sodium Chloride Flush 0.9% 10 Ml Syringe) 10 ml IVP 0100,0900,1700 [facility] Last Admin: 08/04/21 08:38 Dose: Not Given Documented by: Losartan [Cozaar] 100 mg PO DAILY 01/14/15 Aspirin Chewable [[place] Aspirin] 81 mg PO DAILY 08/02/21 Atorvastatin Calcium [Lipitor] 80 mg PO DAILY 08/02/21 Melatonin/Pyridoxine [Melatonin 5 mg Tablet] 1 tablet PO DAILY 08/02/21 Metoprolol Succinate [Toprol Xl] 25 mg PO DAILY 08/02/21 amLODIPine [Norvasc] 2.5 mg PO DAILY 08/02/21
[2021-08-05] MEDS: HYDROcod/ACETAM 5/325 MG TABLET PO PRN ×2 (00:02→16:14)
[2021-08-05] MEDS: ACETAMINOPHEN 325 MG TABLET PO PRN (03:55)
[2021-08-05 05:16] LABS: CREATININE 0.9 mg/dL (0.4-1.0); POTASSIUM 3.6 mmol/L (3.5-5.0)
[2021-08-05 05:54] LABS: BASOPHILS # (AUTO) 0.1 10^3/uL (0.0-0.1); BASOPHILS % (AUTO) 0.6 %; EOSINOPHILS # (AUTO) 0.5 10^3/uL (0.0-0.7); HCT - HEMATOCRIT 35.2 % (37.0-47.0); HGB - HEMOGLOBIN 12.1 g/dL (12.0-16.0); LYMPHOCYTES # (AUTO) 1.4 10^3/uL (1.5-3.5); LYMPHOCYTES % (AUTO) 16.5 %; MEAN CORPUSCULAR HEMOGLOBIN 33.1 pg (27.0-31.0); MEAN CORPUSCULAR HGB CONC 34.4 g/dL (32.0-36.0); MEAN CORPUSCULAR VOLUME 96.2 fL (81.0-99.0); MONOCYTES # (AUTO) 0.7 10^3/uL (0.0-1.0); MONOCYTES % (AUTO) 8.5 %; NEUTROPHILS # (AUTO) 5.6 10^3/uL (1.5-6.6); NEUTROPHILS % (AUTO) 68.2 %; PLT - PLATELET COUNT 159 10^3/uL (130-450); RED BLOOD COUNT 3.66 10^6/uL (4.20-5.40); RED CELL DISTRIBUTION WIDTH 12.5 % (12.0-15.0); WHITE BLOOD COUNT 8.2 x10^3/uL (4.8-10.8)
[2021-08-05] MEDS: PANTOPRAZOLE 40 MG TABLET PO SCH (06:01)
[2021-08-05] MEDS: MULTIVITAMIN W/MINERALS TABLET PO SCH (08:04)
[2021-08-05] MEDS: ENOXAPARIN 40 MG/0.4 ML SYRINGE SUBQ SCH ×2 (09:38→09:49)
[2021-08-05] MEDS: ATORVASTATIN 40 MG TABLET PO SCH (09:39)
[2021-08-05] MEDS: LOSARTAN 50 MG TABLET PO SCH (09:40)
[2021-08-05] MEDS: CHOLECALCIFEROL 25 MCG TABLET PO SCH (09:41)
[2021-08-05] MEDS: amLODIPine 5 MG TABLET PO SCH (09:42)
[2021-08-05] MEDS: METOPROLOL SUCCINATE 25 MG TABLET PO SCH (09:43)
[2021-08-05] MEDS: CALCIUM CARBONATE CHEW 500 MG TABLET PO SCH (09:44)
[2021-08-05] MEDS: ASPIRIN CHEW 81 MG TABLET PO SCH (09:44)
[2021-08-05] MEDS: DIPHENOX/ATROPINE 2.5/0.025 MG TABLET PO PRN (09:55)
[2021-08-05] MEDS: SODIUM CHLORIDE FLUSH 0.9% 10 ML SYRINGE IVP SCH (09:57)
--- NOTE | 2021-08-05 12:31 | Discharge Plan ---
Discharge Plan Problem Reviewed?: Yes Disposition: Home, Self Care Condition: Stable Prescriptions: HYDROcod/ACETAM 5/325 [[place] 5/325] 1 tab PO Q4HR PRN #30 tablet PRN Reason: Pain 5 to 7 Aspirin Chewable [[place] Aspirin] 81 mg PO BID #30 tab Calcium Carbonate [Tums (Calcium Carbonate 500mg)] 500 mg PO DAILY #30 tablet Cholecalciferol [Vitamin D3] 50 mcg PO DAILY #60 tablet Diet: Regular Activity Restrictions: Activity as Tolerated Shower Restrictions: No (fall precaution) Instruction Topics: Acetaminophen Hydrocodone tablets or capsules, Slips Job Prevent, Falls Job Prevent Health Concerns: status post care for left hip repair Plan of Treatment: you have left hip repair in the hospital after you had fall and injury. You are doing well after the procession. You may have weight bearing as tolerated with front wheeled walker. You are prescribed Front wheeled walker. You may continue to have Physical therapist and occupational therapist help you. PT/OT are arranged for you. You may follow-up with orthopedic surgeon Dr. Landeros in 2 weeks or earlier as needed. Aspirin are increase twice daily for clots prevention. [place] Is prescribed for your pain control. Care Goals: Stabilization, improvement and healing of your hip injury. Assessment: Discussed the care plan with you, you prefer to go home with PT and OT to help you, And answered your questions, you understood. Additional Instructions or Follow Up instructions: You may follow-up with your PCP in 1 week, follow-up orthopedic surgeon in 2 weeks or earlier as needed. Should your symptoms return or worse, you may present to ER or call 911 for help Follow-Up Care: Home Health - PT, Home Health - OT No Smoking: If you smoke, Please STOP! Call for help. Follow-up with: Mary Starkey PA-C [Primary Care Provider] -
--- NOTE | 2021-08-05 12:46 | DISCHARGE SUMMARY ---
"Discharge Summary Admit Date: 08/02/21 Discharge Date: 08/05/21 Discharging Provider: Curt Soni Primary Care Provider: Mary Collins Condition at Discharge: Stable Discharge Disposition: 01 Home, Self Care Discharge Facility Name: home - DIAGNOSES Discharge Diagnoses with Status of Each Condition: (1) Hip fracture, left Patient had hip repair done by surgeon in the hospital after he had a mechanical fall in the home. PT and OT evaluated and treated the patient, patient recovered very well from surgery, and pt was recommended to be discharged to home today. pt Also declined to be discharged to SNF. Patient is prescript [place] wheel walker. Home health PT and OT was arranged for patient. Aspirin bid is prescribed for DVT Prophylaxis. [place] is prescribed for pain control as needed. Patient may follow-up orthopedic surgeon in 2 weeks or earlier as needed. (2) CAD (coronary artery disease) stable. Resume home medication schedule (3) Hypertension stable, Resume home medication schedule (4) Hyperlipidemia Stable, resume home meds - HPI History of Present Illness: refer from Dr. Ludn's HPI on 08/02/21 Patient is an 81-year-old female with medical history significant for coronary disease status post two stents in 2018, hyperlipidemia and hypertension who presented to the ED with complaint of left hip pain. She was leaving a restaurant around 1 PM when she had a misstep while stepping off of her curb and fell on her bottom. She did not hit her head or blackout. She was able to stand up with help from passerby and was able to bear weight on her legs. She drove home and for period of time was able to get around the house. However, her pain got significantly worse around 5 PM. She was advised to come to the ED by a family member. In the ED work-up included an xray of the hip and pelvis which showed a left subcapital femoral neck fracture. Dr Eastman with orthopedic surgery was contacted and is agreeable to see the patient in consult. - CONSULTS | PROCEDURES Consultations: Dr. Landeros Procedures: Percutaneous cannulated screw fixation femoral neck fracture left hip - ALLERGIES Allergies/Adverse Reactions: Allergies Allergy/AdvReac Type Severity Reaction Status Date / Time No Known Drug Allergies Allergy Verified 08/02/21 19:59 - MEDICATIONS Home Medications: Ambulatory Orders Medication Instructions Recorded Confirmed Losartan [Cozaar] 100 mg PO DAILY 01/14/15 08/02/21 Atorvastatin Calcium [Lipitor] 80 mg PO DAILY 08/02/21 08/02/21 Melatonin/Pyridoxine [Melatonin 5 1 tablet PO DAILY 08/02/21 08/02/21 mg Tablet] Metoprolol Succinate [Toprol Xl] 25 mg PO DAILY 08/02/21 08/02/21 amLODIPine [Norvasc] 2.5 mg PO DAILY 08/02/21 08/02/21 Aspirin Chewable [[place] 81 mg PO BID #30 tab 08/05/21 Aspirin] Calcium Carbonate [Tums (Calcium 500 mg PO DAILY #30 tablet 08/05/21 Carbonate 500mg)] Cholecalciferol [Vitamin D3] 50 mcg PO DAILY #60 tablet 08/05/21 HYDROcod/ACETAM 5/325 [[place] 5/325] 1 tab PO Q4HR PRN #30 tablet 08/05/21 - PHYSICAL EXAM AT DISCHARGE General Appearance: positive: No acute distress, Alert. negative: Lethargic Eyes Bilateral: positive: Normal inspection, PERRL, No lid inflammation ENT: positive: ENT inspection nml, No signs of dehydration. negative: Purulent nasal drainage Neck: positive: Nml inspection, Trachea midline. negative: Thyromegaly, Tracheal deviation Respiratory: positive: Chest non-tender, No respiratory distress, Breath sounds nml. negative: Wheezes Cardiovascular: positive: Regular rate & rhythm, No murmur. negative: Tachycardia, Bradycardia, Systolic murmur, Diastolic murmur Peripheral Pulses: positive: 2+ Abdomen: positive: Non-tender, Nml bowel sounds, No distention. negative: Tenderness Back: positive: Nml inspection Skin: positive: Color nml, Warm, Dry. negative: Cyanosis Extremities: positive: Non-tender, Nml appearance. negative: Calf tenderness Neurologic/Psychiatric: positive: Oriented x3, Sensation nml, Mood/affect nml. negative: Weakness, Sensory loss, Facial droop, Slurred/abnml speech, Depressed mood/affect - LABS Result Diagrams: 08/05/21 05:39 08/05/21 04:59 - FOLLOW UP Follow Up: you have left hip repair in the hospital after you had fall and injury. You are doing well after the procedure. You may have weight bearing as tolerated with front wheeled walker. You are prescribed Front wheeled walker. You may continue to have Physical therapist and occupational therapist help you. PT/OT are arranged for you. You may follow-up with orthopedic surgeon Dr. Landeros in 2 weeks or earlier as needed. Aspirin are increase twice daily for clots prevention. [place] Is prescribed for your pain control. You may follow-up with your PCP in 1 week, follow-up orthopedic surgeon in 2 weeks or earlier as needed. Should your symptoms return or worse, you may present to ER or call 911 for help - TIME SPENT Time Spent in Discharge (Minutes): 20"
[2021-08-05 16:26] VITALS: BP 117/57
--- NOTE | 2021-08-09 08:33 | XRAY Report ---
PROCEDURE: OR C-Arm Procedure INDICATIONS: hip pinning TECHNIQUE: 3 intraoperative fluoroscopic images of left hip were obtained. COMPARISON: Left hip radiograph dated 08/02/2021. FINDINGS: Intraoperative fluoroscopic images shows surgical pinning of left femoral neck with [address]. Left hip alignment is near-anatomic. Total fluoroscopy time is 24 seconds. IMPRESSION: Fluoroscopy guidance was provided intraoperatively for left hip pinning. Reviewed by: Genaro Rivera MD on 08/09/2021 8:31 AM PST Approved by: Genaro Rivera MD on 08/09/2021 8:31 AM PST Station ID: [id number]
== END 2021-08-05 18:20 | disposition home or self-care (01) | DRG 482 ==
LOC: ED 19:38 → MS3 22:19
PROVIDERS: ADMIT Internal Medicine; ATTEND Nurse Practitioner Gerontology
PROC: 0QH734Z Insertion of Internal Fixation Device into Left Upper Femur, Percutaneous Approach (ICD-10-PCS; principal; 2021-08-03 15:30)
DX: S72.012A Unspecified intracapsular fracture of left femur, initial encounter for closed fracture (principal); W10.1XXA Fall (on)(from) sidewalk curb, initial encounter; Y92.9 Unspecified place or not applicable; Y92.511 Restaurant or cafe as the place of occurrence of the external cause; Z86.74 Personal history of sudden cardiac arrest; E78.00 Pure hypercholesterolemia, unspecified; I25.10 Atherosclerotic heart disease of native coronary artery without angina pectoris; Z20.822 Contact with and (suspected) exposure to COVID-19; I10 Essential (primary) hypertension; E78.5 Hyperlipidemia, unspecified; Z95.5 Presence of coronary angioplasty implant and graft; M17.0 Bilateral primary osteoarthritis of knee; Z96.651 Presence of right artificial knee joint; K21.9 Gastro-esophageal reflux disease without esophagitis; Z79.899 Other long term (current) drug therapy
CPT/HCPCS: 36415; 73502; 80048; 85025; 85610; 87631; 93005; 97116; 97161; 97165; 97530; 99283; 99285; A9270; J1650; J7120; 0202U

== ENCOUNTER 2021-09-13 10:00 | Outpatient (CLI) | payer MEDICARE ==
--- NOTE | 2021-09-13 12:13 | XRAY Report ---
PROCEDURE: Hip w/Pelvis 1V LT INDICATIONS: FX OF NECK OF L FEMUR TECHNIQUE: AP pelvis with lateral view of the left hip. COMPARISON: Left hip radiographs 08/02/2021 FINDINGS: Bones: Postsurgical changes are seen from fixation of the previously seen femoral neck fracture with 3 metallic screws. The hardware is intact. The alignment is anatomic. Degenerative changes are seen i n the included spine. Soft tissues: The visualized bowel gas pattern is normal. Nonspecific benign-appearing calcification s are seen projecting over the pelvis. IMPRESSION: Status post left proximal femoral fracture fixation with improved alignment. Reviewed by: Ben Carrillo MD on 09/13/2021 12:12 PM PST Approved by: Ben Carrillo MD on 09/13/2021 12:12 PM PST Station ID: [id number]
== END 2021-09-13 23:59 | disposition home or self-care (01) ==
LOC: DI.N 10:00
PROVIDERS: ATTEND Orthopaedic Surgery
DX: S72.002D Fracture of unspecified part of neck of left femur, subsequent encounter for closed fracture with routine healing (principal)

== ENCOUNTER 2021-11-14 09:08 | Outpatient (CLI) | payer MEDICARE ==
--- NOTE | 2021-11-14 15:45 | XRAY Report ---
PROCEDURE: Hip 2 View LT INDICATIONS: LEFT HIP FRACTURE FOLLOWUP TECHNIQUE: 2 view(s) of the hip were acquired. COMPARISON: 09/13/2021 FINDINGS: Bones: Healing left femoral neck fracture fixed with 3 lag screws which appear in stable and appropr iate position. Screws are intact. No unexpected fracture. Normal bone alignment. No new fracture in t he pelvis or right hip. No fractures or dislocations. No suspicious bony lesions. The visualized pe lvic ring appears intact. Soft tissues: No suspicious soft tissue calcifications or masses. Vascular and possibly uterine pel briana calcifications, benign. IMPRESSION: Expected appearance of healing left hip fracture following hip pinning. Reviewed by: Amanda Jones MD on 11/14/2021 3:44 PM PST Approved by: Amanda Jones MD on 11/14/2021 3:44 PM PST Station ID: [id number]
== END 2021-11-14 09:09 | disposition home or self-care (01) ==
LOC: DI.WOS 09:08
PROVIDERS: ATTEND Physician Assistant
DX: S72.092D Other fracture of head and neck of left femur, subsequent encounter for closed fracture with routine healing (principal)

== ENCOUNTER 2021-12-26 08:23 | Outpatient (CLI) | payer MEDICARE ==
[2021-12-26 12:32] LABS: BASOPHILS # (AUTO) 0.1 10^3/uL (0.0-0.1); BASOPHILS % (AUTO) 0.7 %; EOSINOPHILS # (AUTO) 0.2 10^3/uL (0.0-0.7); EOSINOPHILS % (AUTO) 2.3 %; HCT - HEMATOCRIT 42.9 % (37.0-47.0); HGB - HEMOGLOBIN 14.4 g/dL (12.0-16.0); LYMPHOCYTES # (AUTO) 1.5 10^3/uL (1.5-3.5); LYMPHOCYTES % (AUTO) 21.1 %; MEAN CORPUSCULAR HEMOGLOBIN 32.1 pg (27.0-31.0); MEAN CORPUSCULAR HGB CONC 33.6 g/dL (32.0-36.0); MEAN CORPUSCULAR VOLUME 95.5 fL (81.0-99.0); MEAN PLATELET VOLUME 10.4 fL (7.9-10.8); MONOCYTES # (AUTO) 0.5 10^3/uL (0.0-1.0); MONOCYTES % (AUTO) 7.5 %; NEUTROPHILS # (AUTO) 4.7 10^3/uL (1.5-6.6); NEUTROPHILS % (AUTO) 68.3 %; PLT - PLATELET COUNT 207 10^3/uL (130-450); RED BLOOD COUNT 4.49 10^6/uL (4.20-5.40); WHITE BLOOD COUNT 6.9 x10^3/uL (4.8-10.8)
[2021-12-26 12:51] LABS: CALCIUM 9.8 mg/dL (8.5-10.3); CREATININE 0.9 mg/dL (0.4-1.0); POTASSIUM 3.4 mmol/L (3.5-5.0)
[2021-12-26 14:06] LABS: ESTIMATED AVERAGE GLUCOSE 114 mg/dL (70-100); HEMOGLOBIN A1c% 5.6 % (4.27-6.07)
[2021-12-26 17:40] LABS: BILIRUBIN,URINE NEGATIVE (NEGATIVE); GLUCOSE, URINE (UA) NEGATIVE (NEGATIVE); KETONES,URINE (UA) NEGATIVE (NEGATIVE); LEUKOCYTE ESTERASE, URINE NEGATIVE (NEGATIVE); NITRITE,URINE NEGATIVE (NEGATIVE); OCCULT BLOOD,URINE TRACE-INTA (NEGATIVE); PROTEIN,URINE NEGATIVE (NEGATIVE); UROBILINOGEN,URINE 0.2 (NORMAL) E.U./dL (NORMAL)
[2021-12-26 18:22] LABS: BACTERIA,URINE None Seen /HPF (None Seen); CLARITY,URINE CLEAR (CLEAR); CRYSTALS,URINE 6-10 Calcium Oxalate /LPF; RBC,URINE 0-5 /HPF (0-5); SQUAMOUS EPITHELIAL CELL,UR RARE Squamous (<= Few); WBC,URINE 0-3 /HPF (0-5)
== END 2021-12-26 08:24 | disposition home or self-care (01) ==
LOC: LAB.N 08:23
PROVIDERS: ATTEND Physician Assistant Medical
DX: Z01.812 Encounter for preprocedural laboratory examination (principal)
CPT/HCPCS: 36415; 80048; 81001; 83036; 85025; 87086

== ENCOUNTER 2022-02-14 08:31 | Outpatient (CLI) | payer MEDICARE | END 2022-02-14 08:32 | disposition home or self-care (01) | LOC: RT 08:31 | PROVIDERS: ATTEND Orthopaedic Surgery | DX: Z01.810 Encounter for preprocedural cardiovascular examination (principal) | CPT/HCPCS: 93005 ==

== ENCOUNTER 2022-06-27 10:01 | Outpatient (CLI) | payer MEDICARE ==
[2022-06-27 12:26] LABS: BASOPHILS % (AUTO) 0.7 %; EOSINOPHILS # (AUTO) 0.1 10^3/uL (0.0-0.7); EOSINOPHILS % (AUTO) 1.4 %; HCT - HEMATOCRIT 44.5 % (37.0-47.0); HGB - HEMOGLOBIN 15.3 g/dL (12.0-16.0); LYMPHOCYTES # (AUTO) 0.7 10^3/uL (1.5-3.5); LYMPHOCYTES % (AUTO) 11.6 %; MEAN CORPUSCULAR HEMOGLOBIN 32.3 pg (27.0-31.0); MEAN CORPUSCULAR HGB CONC 34.4 g/dL (32.0-36.0); MEAN CORPUSCULAR VOLUME 94.1 fL (81.0-99.0); MEAN PLATELET VOLUME 9.8 fL (7.9-10.8); MONOCYTES # (AUTO) 0.5 10^3/uL (0.0-1.0); NEUTROPHILS # (AUTO) 4.4 10^3/uL (1.5-6.6); NEUTROPHILS % (AUTO) 77.1 %; PLT - PLATELET COUNT 182 10^3/uL (130-450); RED BLOOD COUNT 4.73 10^6/uL (4.20-5.40); RED CELL DISTRIBUTION WIDTH 12.2 % (12.0-15.0); WHITE BLOOD COUNT 5.8 x10^3/uL (4.8-10.8)
[2022-06-27 12:49] LABS: ALBUMIN 4.8 g/dL (3.2-5.5); ALKALINE PHOSPHATASE 90 IU/L (42-121); ALT ALANINE AMINOTRANSFERASE 23 IU/L (10-60); AST ASPARTATE AMINOTRANSFERASE 25 IU/L (10-42); BUN - BLOOD UREA NITROGEN 16 mg/dL (6-20); CALCIUM 10.5 mg/dL (8.5-10.3); CARBON DIOXIDE - CO2 29 mmol/L (21-32); CHLORIDE 102 mmol/L (101-111); CHOL/HDL RATIO 2.1 (<4.4); CHOLESTEROL 144 mg/dL; CREATININE 0.9 mg/dL (0.4-1.0); GFR - MDRD 60 (>89); GLUCOSE 103 mg/dL (70-100); HDL CHOLESTEROL 69 mg/dL; LDL CHOLESTEROL,CALCULATED 60 mg/dL; LDL/HDL RATIO 0.9 (<4.4); POTASSIUM 4.2 mmol/L (3.5-5.0); SODIUM 139 mmol/L (135-145); TOTAL PROTEIN 7.2 g/dL (6.7-8.2); TRIGLYCERIDES 77 mg/dL; VLDL CHOLESTEROL 15 mg/dL
== END 2022-06-27 10:02 | disposition home or self-care (01) ==
LOC: LAB.N 10:01
PROVIDERS: ATTEND Nurse Practitioner Acute Care
DX: I25.10 Atherosclerotic heart disease of native coronary artery without angina pectoris (principal)
CPT/HCPCS: 36415; 80053; 80061; 83721; 85025

== ENCOUNTER 2022-09-12 07:00 | Outpatient (CLI) | payer MEDICARE ==
--- NOTE | 2022-09-12 14:49 | XRAY Report ---
PROCEDURE: Cervical Spine 2 View INDICATIONS: NECK PX TECHNIQUE: 3 view(s) of the cervical spine were acquired. COMPARISON: None. FINDINGS: Bones: No fractures or dislocations to the T1 level. There is trace, approximately 3 mm of C7-T1 ant erolisthesis. The lateral masses of C1 appear intact on the odontoid view. No suspicious bony lesion s. Severe C5-C6 and C6-7 C7 degenerative disc disease. Moderate C4-C5 degenerative disc disease. Mode rate C6-C7 and C7-T1 facet hypertrophy. Mild C2-C3, C3 on C4, C4-C5 and C5-C6 facet hypertrophy. Soft tissues: No prevertebral soft tissue swelling. IMPRESSION: 1. Multilevel degenerative disc disease. 2. Multilevel facet arthropathy. 3. No fracture. No acute osseous lesion. If there is continued clinical concern for pathology, then M RI should be considered for further evaluation. Reviewed by: Aster Du MD, PhD on 09/12/2022 2:48 PM PST Approved by: Aster Du MD, PhD on 09/12/2022 2:48 PM PST Station ID: [id number]
== END 2022-09-12 23:59 | disposition home or self-care (01) ==
LOC: DI.N 07:00
PROVIDERS: ATTEND Registered Nurse
DX: M50.321 Other cervical disc degeneration at C4-C5 level (principal); M47.812 Spondylosis without myelopathy or radiculopathy, cervical region

== ENCOUNTER 2023-03-31 09:09 | Outpatient (CLI) | payer MEDICARE ==
[2023-03-31 19:03] LABS: BASOPHILS # (AUTO) 0.1 10^3/uL (0.0-0.1); BASOPHILS % (AUTO) 0.9 %; EOSINOPHILS # (AUTO) 0.1 10^3/uL (0.0-0.7); EOSINOPHILS % (AUTO) 1.9 %; HCT - HEMATOCRIT 44.4 % (37.0-47.0); HGB - HEMOGLOBIN 14.5 g/dL (12.0-16.0); LYMPHOCYTES # (AUTO) 1.1 10^3/uL (1.5-3.5); LYMPHOCYTES % (AUTO) 19.8 %; MEAN CORPUSCULAR HEMOGLOBIN 31.7 pg (27.0-31.0); MEAN CORPUSCULAR HGB CONC 32.7 g/dL (32.0-36.0); MEAN CORPUSCULAR VOLUME 96.9 fL (81.0-99.0); MEAN PLATELET VOLUME 10.5 fL (7.9-10.8); MONOCYTES # (AUTO) 0.5 10^3/uL (0.0-1.0); MONOCYTES % (AUTO) 10.1 %; NEUTROPHILS # (AUTO) 3.6 10^3/uL (1.5-6.6); NEUTROPHILS % (AUTO) 67.1 %; PLT - PLATELET COUNT 177 10^3/uL (130-450); RED BLOOD COUNT 4.58 10^6/uL (4.20-5.40); RED CELL DISTRIBUTION WIDTH 12.9 % (12.0-15.0); WHITE BLOOD COUNT 5.4 x10^3/uL (4.8-10.8)
[2023-03-31 19:29] LABS: ALBUMIN 4.2 g/dL (3.2-5.5); ALBUMIN/GLOBULIN RATIO 1.8 (1.0-2.2); ALKALINE PHOSPHATASE 78 IU/L (42-121); ALT ALANINE AMINOTRANSFERASE 21 IU/L (10-60); AST ASPARTATE AMINOTRANSFERASE 23 IU/L (10-42); BUN - BLOOD UREA NITROGEN 19 mg/dL (6-20); CALCIUM 9.8 mg/dL (8.5-10.3); CARBON DIOXIDE - CO2 26 mmol/L (21-32); CHLORIDE 103 mmol/L (101-111); CHOLESTEROL 128 mg/dL; CREATININE 0.9 mg/dL (0.4-1.0); GFR - MDRD 60 (>89); GLUCOSE 94 mg/dL (70-100); HDL CHOLESTEROL 64 mg/dL; LDL CHOLESTEROL,CALCULATED 52 mg/dL; LDL/HDL RATIO 0.8 (<4.4); POTASSIUM 4.1 mmol/L (3.5-5.0); SODIUM 138 mmol/L (135-145); TOTAL PROTEIN 6.6 g/dL (6.7-8.2); TRIGLYCERIDES 60 mg/dL; VLDL CHOLESTEROL 12 mg/dL
== END 2023-03-31 09:10 | disposition home or self-care (01) ==
LOC: LAB.N 09:09
PROVIDERS: ATTEND Physician Assistant Medical
DX: E78.5 Hyperlipidemia, unspecified (principal); I10 Essential (primary) hypertension
CPT/HCPCS: 36415; 80053; 80061; 83721; 85025

== ENCOUNTER 2023-05-29 12:21 | Outpatient (CLI) | payer MEDICARE ==
--- NOTE | 2023-05-30 16:27 | Ultrasound Report ---
LIMITED ULTRASOUND OF LEFT BREAST: 05/29/2023 CLINICAL: Patient returns today to evaluate a focal asymmetry in the left breast. Comparison is made to exams dated: 05/29/2023 mammogram, 05/09/2023 mammogram, 01/05/2021 mammogram, 06/26 mammogram, 09/17/2013 mammogram, and 09/13/2011 mammogram - [facility]. Color flow ultrasound of the left breast 12 o'clock region was performed. Fontanez scale images of the real-time examination were reviewed. There is a 0.3 cm x 0.2 cm x 0.3 cm oval simple cyst in the left breast at 11 o'clock anterior depth 2 cm from the nipple. This oval simple cyst is hypoechoic. This likely correlates with mammography findings. Color flow imaging demonstrates that there is no vascularity present. IMPRESSION: BENIGN There is no sonographic evidence of malignancy. The 0.3 cm x 0.2 cm x 0.3 cm oval cyst in the left breast is consistent with a simple cyst and is ronaldo ign. A 1 year screening mammogram is recommended. Findings and recommendations were conveyed to the patient during today's evaluation. This exam was interpreted at Station ID: [id number]. Electronically Signed By: Alan Temple M.D. aty/:05/29/2023 14:49:21 Ultrasound BI-RADS: 2 Benign BI-RADS CATEGORY: (2) - 2 Mammogram [id number] 1 year screening LATERALITY: (B)
--- NOTE | 2023-05-30 16:27 | Mammography Report ---
UNILATERAL LEFT DIGITAL DIAGNOSTIC MAMMOGRAM 3D/2D WITH SPOT COMPRESSION: 05/29/2023 CLINICAL: Patient returns today to evaluate a focal asymmetry in the left breast. Comparison is made to exams dated: 05/09/2023 mammogram, 01/05/2021 mammogram, 06/26/2019 mammogram, and 09/17/2013 mammogram - [facility]. There are scattered areas of fibroglandular density in the left breast (category b / 25%-50% glandula r tissue). The previously described possible oval equal density focal asymmetry in the left breast at 12 o'clock anterior depth is not seen definitively seen on today's additional views. Overall, it is less promi nent and decreased in size. No other significant masses or calcifications are seen in the breast. IMPRESSION: INCOMPLETE: NEEDS ADDITIONAL IMAGING EVALUATION The possible oval equal density focal asymmetry in the left breast is indeterminate. An ultrasound is recommended for further evaluation and is scheduled to immediately follow this examination. Based on the Tyrer Cuzick model (a risk assessment model) the patients lifetime risk is 0.5% and her 10 year risk is 0.0%. According to the ACR, ACS, and NCCN guidelines, an annual breast MRI exam katie g with mammogram is recommended if the patients lifetime risk is 20% or greater. This exam was interpreted at Station ID: [id number]. NOTE: For mammograms, a report in lay terms will be sent to the patient. Approximately 15% of breast malignancies will not be visualized mammographically. In the management of a palpable breast mass, a negative mammogram must not discourage biopsy of a clinically suspicious lesion. Electronically Signed By: Alan Temple M.D. aty/:05/29/2023 14:47:05 ACR BI-RADS Category 0: Incomplete 3340F PARENCHYMAL PATTERN: (A) - The breast(s) demonstrate(s) scattered fibroglandular densities. BI-RADS CATEGORY: (0) - 0 Ultrasound [id number] Immediate follow-up LATERALITY: (L)
== END 2023-05-29 12:22 | disposition home or self-care (01) ==
LOC: DI 12:21
PROVIDERS: ATTEND Physician Assistant Medical
DX: N60.02 Solitary cyst of left breast (principal)

== ENCOUNTER 2023-07-24 08:21 | Outpatient (CLI) | payer MEDICARE ==
[2023-07-24 12:35] LABS: BASOPHILS # (AUTO) 0.1 10^3/uL (0.0-0.1); BASOPHILS % (AUTO) 1.2 %; EOSINOPHILS # (AUTO) 0.1 10^3/uL (0.0-0.7); EOSINOPHILS % (AUTO) 2.4 %; HCT - HEMATOCRIT 44.7 % (37.0-47.0); HGB - HEMOGLOBIN 14.9 g/dL (12.0-16.0); LYMPHOCYTES # (AUTO) 0.9 10^3/uL (1.5-3.5); LYMPHOCYTES % (AUTO) 18.3 %; MEAN CORPUSCULAR HEMOGLOBIN 32.1 pg (27.0-31.0); MEAN CORPUSCULAR HGB CONC 33.3 g/dL (32.0-36.0); MEAN CORPUSCULAR VOLUME 96.3 fL (81.0-99.0); MEAN PLATELET VOLUME 10.5 fL (7.9-10.8); MONOCYTES # (AUTO) 0.5 10^3/uL (0.0-1.0); MONOCYTES % (AUTO) 9.7 %; NEUTROPHILS # (AUTO) 3.4 10^3/uL (1.5-6.6); PLT - PLATELET COUNT 191 10^3/uL (130-450); RED BLOOD COUNT 4.64 10^6/uL (4.20-5.40); RED CELL DISTRIBUTION WIDTH 12.7 % (12.0-15.0)
[2023-07-24 13:03] LABS: ALBUMIN 4.6 g/dL (3.2-5.5); ALBUMIN/GLOBULIN RATIO 2.1 (1.0-2.2); ALKALINE PHOSPHATASE 92 IU/L (42-121); ALT ALANINE AMINOTRANSFERASE 19 IU/L (10-60); AST ASPARTATE AMINOTRANSFERASE 20 IU/L (10-42); BILIRUBIN,TOTAL 0.9 mg/dL (0.2-1.0); BUN - BLOOD UREA NITROGEN 19 mg/dL (6-20); CALCIUM 10.4 mg/dL (8.5-10.3); CARBON DIOXIDE - CO2 32 mmol/L (21-32); CHLORIDE 107 mmol/L (101-111); CHOL/HDL RATIO 1.8 (<4.4); CHOLESTEROL 129 mg/dL; CREATININE 0.9 mg/dL (0.6-1.3); GFR - MDRD 60 (>89); GLUCOSE 96 mg/dL (74-104); HDL CHOLESTEROL 70 mg/dL; LDL CHOLESTEROL,CALCULATED 45 mg/dL; LDL/HDL RATIO 0.6 (<4.4); POTASSIUM 4.3 mmol/L (3.5-4.5); SODIUM 143 mmol/L (135-145); TOTAL PROTEIN 6.8 g/dL (6.4-8.9); TRIGLYCERIDES 72 mg/dL (48-352); VLDL CHOLESTEROL 14 mg/dL
== END 2023-07-24 08:22 | disposition home or self-care (01) ==
LOC: LAB.N 08:21
PROVIDERS: ATTEND Nurse Practitioner Acute Care
DX: I25.10 Atherosclerotic heart disease of native coronary artery without angina pectoris (principal); E78.5 Hyperlipidemia, unspecified
CPT/HCPCS: 36415; 80053; 80061; 83721; 85025

== ENCOUNTER 2023-10-25 09:37 | Outpatient (CLI) | payer MEDICARE ==
[2023-10-25 12:10] LABS: ALBUMIN 4.3 g/dL (3.2-5.5); ALBUMIN/GLOBULIN RATIO 1.8 (1.0-2.2); ALKALINE PHOSPHATASE 95 IU/L (42-121); ALT ALANINE AMINOTRANSFERASE 19 IU/L (10-60); AST ASPARTATE AMINOTRANSFERASE 20 IU/L (10-42); BILIRUBIN,TOTAL 0.9 mg/dL (0.2-1.0); BUN - BLOOD UREA NITROGEN 18 mg/dL (6-20); CARBON DIOXIDE - CO2 28 mmol/L (21-32); CHLORIDE 106 mmol/L (101-111); CHOLESTEROL 118 mg/dL; CREATININE 0.9 mg/dL (0.6-1.3); GFR - MDRD 60 (>89); GLUCOSE 96 mg/dL (74-104); HDL CHOLESTEROL 60 mg/dL; LDL CHOLESTEROL,CALCULATED 43 mg/dL; LDL/HDL RATIO 0.7 (<4.4); POTASSIUM 3.9 mmol/L (3.5-4.5); SODIUM 140 mmol/L (135-145); TOTAL PROTEIN 6.7 g/dL (6.4-8.9); TRIGLYCERIDES 75 mg/dL (48-352); VLDL CHOLESTEROL 15 mg/dL
== END 2023-10-25 09:38 | disposition home or self-care (01) ==
LOC: LAB.N 09:37
PROVIDERS: ATTEND Physician Assistant Medical
DX: E78.5 Hyperlipidemia, unspecified (principal)
CPT/HCPCS: 36415; 80053; 80061; 83721

== ENCOUNTER 2023-12-11 12:50 | Outpatient (CLI) | payer MEDICARE ==
--- NOTE | 2023-12-11 15:38 | XRAY Report ---
PROCEDURE: Ribs w/PA Chest 4+V BL INDICATIONS: LEFT SIDED RIB PAIN TECHNIQUE: 2 views of the ribs were acquired, along with a single view chest. COMPARISON: None. FINDINGS: Surgical changes and devices: None. Bones and chest wall: No fractures or dislocations. No suspicious bony lesions. Overlying soft tis sues appear unremarkable. Lungs and pleura: No pleural effusions or pneumothorax. Lungs appear clear. Mediastinum: Mediastinal contours appear normal. Heart size is normal. IMPRESSION: No displaced rib fracture or pneumothorax. Reviewed by: Genaro Rivera MD on 12/11/2023 3:37 PM PDT Approved by: Genaro Rivera MD on 12/11/2023 3:37 PM PDT Station ID: [id number]
== END 2023-12-11 12:51 | disposition home or self-care (01) ==
LOC: DI 12:50
PROVIDERS: ATTEND Family Medicine
DX: R07.81 Pleurodynia (principal)

== ENCOUNTER 2024-02-08 09:30 | Outpatient (CLI) | payer MEDICARE ==
[2024-02-08 12:11] LABS: HCT - HEMATOCRIT 43.8 % (37.0-47.0); HGB - HEMOGLOBIN 14.1 g/dL (12.0-16.0); MEAN CORPUSCULAR HEMOGLOBIN 31.2 pg (27.0-31.0); MEAN CORPUSCULAR HGB CONC 32.2 g/dL (32.0-36.0); MEAN CORPUSCULAR VOLUME 96.9 fL (81.0-99.0); MEAN PLATELET VOLUME 10.6 fL (7.9-10.8); RED BLOOD COUNT 4.52 10^6/uL (4.20-5.40); RED CELL DISTRIBUTION WIDTH 13.3 % (12.0-15.0); WHITE BLOOD COUNT 6.2 x10^3/uL (4.8-10.8)
[2024-02-08 12:37] LABS: ALBUMIN 4.5 g/dL (3.2-5.5); ALBUMIN/GLOBULIN RATIO 2.3 (1.0-2.2); ALKALINE PHOSPHATASE 97 IU/L (42-121); ALT ALANINE AMINOTRANSFERASE 18 IU/L (10-60); AST ASPARTATE AMINOTRANSFERASE 19 IU/L (10-42); BILIRUBIN,TOTAL 0.8 mg/dL (0.2-1.0); BUN - BLOOD UREA NITROGEN 21 mg/dL (6-20); CALCIUM 10.5 mg/dL (8.5-10.3); CARBON DIOXIDE - CO2 29 mmol/L (21-32); CHLORIDE 104 mmol/L (101-111); CREATININE 0.8 mg/dL (0.6-1.3); CRP - C-REACTIVE PROTEIN < 0.5 mg/dL (<0.5); GFR - MDRD 68 (>89); GLUCOSE 97 mg/dL (74-104); POTASSIUM 4.2 mmol/L (3.5-4.5); SODIUM 139 mmol/L (135-145); TOTAL PROTEIN 6.5 g/dL (6.4-8.9)
[2024-02-08 12:41] LABS: THYROID STIMULATING HORMONE 1.17 uIU/mL (0.34-5.60)
[2024-02-09 23:07] LABS: T-TRANSGLUTAMINASE (TTG) IGA <2 U/mL (0-3); T-TRANSGLUTAMINASE (TTG) IGG <2 U/mL (0-5)
== END 2024-02-08 09:31 | disposition home or self-care (01) ==
LOC: LAB.N 09:30
PROVIDERS: ATTEND Nurse Practitioner Family
DX: K52.9 Noninfective gastroenteritis and colitis, unspecified (principal)
CPT/HCPCS: 36415; 80053; 83993; 84443; 85027; 86140; 86364; 87045; 87046; 87427; 87493

== ENCOUNTER 2024-05-01 09:41 | Outpatient (CLI) | payer MEDICARE ==
[2024-05-01 12:12] LABS: BASOPHILS # (AUTO) 0.1 10^3/uL (0.0-0.1); EOSINOPHILS # (AUTO) 0.2 10^3/uL (0.0-0.7); EOSINOPHILS % (AUTO) 3.1 %; HCT - HEMATOCRIT 42.6 % (37.0-47.0); HGB - HEMOGLOBIN 13.8 g/dL (12.0-16.0); MEAN CORPUSCULAR HEMOGLOBIN 31.2 pg (27.0-31.0); MEAN CORPUSCULAR HGB CONC 32.4 g/dL (32.0-36.0); MEAN CORPUSCULAR VOLUME 96.4 fL (81.0-99.0); MEAN PLATELET VOLUME 9.9 fL (7.9-10.8); MONOCYTES # (AUTO) 0.6 10^3/uL (0.0-1.0); MONOCYTES % (AUTO) 9.7 %; NEUTROPHILS # (AUTO) 3.9 10^3/uL (1.5-6.6); PLT - PLATELET COUNT 211 10^3/uL (130-450); RED BLOOD COUNT 4.42 10^6/uL (4.20-5.40); RED CELL DISTRIBUTION WIDTH 12.7 % (12.0-15.0); WHITE BLOOD COUNT 5.8 x10^3/uL (4.8-10.8)
[2024-05-01 12:44] LABS: ALBUMIN 4.4 g/dL (3.2-5.5); ALBUMIN/GLOBULIN RATIO 2.1 (1.0-2.2); ALKALINE PHOSPHATASE 86 IU/L (42-121); ALT ALANINE AMINOTRANSFERASE 15 IU/L (10-60); AST ASPARTATE AMINOTRANSFERASE 17 IU/L (10-42); BILIRUBIN,TOTAL 0.8 mg/dL (0.2-1.0); BUN - BLOOD UREA NITROGEN 13 mg/dL (6-20); CALCIUM 10.3 mg/dL (8.5-10.3); CARBON DIOXIDE - CO2 29 mmol/L (21-32); CHLORIDE 105 mmol/L (101-111); CHOL/HDL RATIO 1.9 (<4.4); CHOLESTEROL 112 mg/dL; CREATININE 0.9 mg/dL (0.6-1.3); GFR - MDRD 60 (>89); GLUCOSE 95 mg/dL (74-104); HDL CHOLESTEROL 59 mg/dL; LDL CHOLESTEROL,CALCULATED 36 mg/dL; LDL/HDL RATIO 0.6 (<4.4); POTASSIUM 4.2 mmol/L (3.5-4.5); SODIUM 139 mmol/L (135-145); TOTAL PROTEIN 6.5 g/dL (6.4-8.9); TRIGLYCERIDES 83 mg/dL; VLDL CHOLESTEROL 17 mg/dL
== END 2024-05-01 09:42 | disposition home or self-care (01) ==
LOC: LAB.N 09:41
PROVIDERS: ATTEND Physician Assistant Medical
DX: I10 Essential (primary) hypertension (principal); I25.10 Atherosclerotic heart disease of native coronary artery without angina pectoris
CPT/HCPCS: 36415; 80053; 80061; 83721; 85025